=== PATIENT | female | born 1990 | race Caucasian/White ===

== ENCOUNTER 2019-03-10 12:10 | Outpatient (CLI) | payer OTHER, SELFPAY ==
--- NOTE | 2019-03-10 12:21 | ECG_ITS ---
Measurements Intervals [place] Rate: 81 P: 52 AL: 172 QRS: 38 QRSD: 79 T: 33 QT: 340 QTc: 396 Interpretive Statements SINUS RHYTHM WITH SINUS ARRHYTHMIA MINIMAL Q WAVES- INFERIOR LEADS BORDERLINE ECG Electronically Signed On 03-10-2019 16:18:17 PROFESSOR OF ART by Jeffery Loaiza D.O.
== END 2019-03-10 12:11 | disposition home or self-care (01) ==
LOC: ANHCARD 12:12
PROVIDERS: PCP Family Medicine; Visit Provider Student in an Organized Health Care Education/Training Program
DX: I49.9 Cardiac arrhythmia, unspecified (principal)
CPT/HCPCS: 93005

== ENCOUNTER 2019-03-15 06:40 | Outpatient (CLI) | payer OTHER, SELFPAY ==
--- NOTE | 2019-03-16 16:40 | WPDHOLTEREM ---
Holter/Event Monitor Holter/Event Monitor Date of procedure: 03/15/19 Procedure Type: 24 hour holter monitor Indications: Cardiac arrhythmia Conclusion: 1. 24 hour holter monitor on 03/15/19. 2. Underlying rhythm is sinus rhythm with sinus arrhythmia. HR range 45-160 bpm; average HR 88 bpm. 3. No premature supraventricular complexes. No supraventricular tachycardia. 4. There is one premature ventricular complex. No ventricular tachycardia. 5. No sinoatrial or atrioventricular blocks. No significant pauses greater than 2 seconds. 6. No symptoms available for correlation.
== END 2019-03-15 06:41 | disposition home or self-care (01) ==
PROVIDERS: PCP Family Medicine; Visit Provider Student in an Organized Health Care Education/Training Program
DX: I49.9 Cardiac arrhythmia, unspecified (principal)
CPT/HCPCS: 93225; 93226

== ENCOUNTER 2019-03-29 16:13 | Outpatient (CLI) | payer OTHER, SELFPAY ==
[2019-03-29 17:29] LABS: Basophils Absolute Auto 0.1 K/mm3 (0.0-0.1); Basophils Percent Auto 0.8 % (0.2-1.2); Eosinophils Absolute Auto 0.3 K/mm3 (0-0.3); Eosinophils Percent Auto 2.9 % (0-4.4); Hematocrit 36.2 % (37.0-47.0); Hemoglobin 12.4 g/dL (12.0-15.0); Immature Granulocyte Absolute 0.25 K/mm3 (0.00-0.031); Immature Granulocyte Percent A 2.1 % (0-0.5); Lymphocytes Percent Auto 17.6 % (18.3-44.2); Mean Corpuscular HGB Conc 34.3 g/dl (32-36); Mean Corpuscular Hemoglobin 30.5 pg (26-34); Mean Corpuscular Volume 89.2 fl (80-100); Mean Platelet Volume 9.5 fl (7.4-10.4); Neutrophils Absolute Auto 8.2 K/mm3 (1.3-6.7); Neutrophils Percent Auto 68.6 % (45.5-73.1); Platelet Count Result 171 k/mm3 (150-375); Red Blood Count 4.06 M/mm3 (4.2-5.4); Red Cell Distribution Width 13.1 % (11.5-14.5); White Blood Count 11.9 K/mm3 (4.5-10.0)
[2019-03-29 18:16] LABS: Glucose 1 Hour PP 50gm Dose 121 mg/dL
== END 2019-03-29 16:14 | disposition home or self-care (01) ==
LOC: ANHLAB 16:14
PROVIDERS: PCP Family Medicine; Visit Provider Student in an Organized Health Care Education/Training Program
DX: Z34.90 Encounter for supervision of normal pregnancy, unspecified, unspecified trimester (principal); Z36.89 Encounter for other specified antenatal screening; Z3A.00 Weeks of gestation of pregnancy not specified
CPT/HCPCS: 36415; 82947; 85025

== ENCOUNTER 2019-05-25 09:03 | Outpatient (CLI) | payer OTHER, SELFPAY ==
[2019-05-25 09:23] LABS: Basophils Absolute Auto 0.1 K/mm3 (0.0-0.1); Basophils Percent Auto 0.8 % (0.2-1.2); Eosinophils Absolute Auto 0.2 K/mm3 (0-0.3); Eosinophils Percent Auto 2.2 % (0-4.4); Hematocrit 40.6 % (37.0-47.0); Immature Granulocyte Absolute 0.12 K/mm3 (0.00-0.031); Immature Granulocyte Percent A 1.1 % (0-0.5); Lymphocytes Absolute Auto 1.86 K/mm3 (0.9-3.2); Lymphocytes Percent Auto 17.3 % (18.3-44.2); Mean Corpuscular HGB Conc 34.5 g/dl (32-36); Mean Corpuscular Hemoglobin 30.3 pg (26-34); Mean Corpuscular Volume 87.9 fl (80-100); Monocytes Absolute Auto 0.9 K/mm3 (0.1-0.6); Monocytes Percent Auto 8.6 % (2.6-8.5); Neutrophils Absolute Auto 7.5 K/mm3 (1.3-6.7); Platelet Count Result 185 k/mm3 (150-375); Red Blood Count 4.62 M/mm3 (4.2-5.4); Red Cell Distribution Width 13.5 % (11.5-14.5); White Blood Count 10.8 K/mm3 (4.5-10.0)
[2019-05-25 10:14] LABS: HIV 1/2 Ab P24 Ag Result Negative (Negative)
[2019-05-26 08:37] LABS: Rapid Plasma Reagin Non-Reactive (NonReactive)
== END 2019-05-25 09:04 | disposition home or self-care (01) ==
LOC: ANHLAB 09:06
PROVIDERS: PCP Family Medicine; Visit Provider Student in an Organized Health Care Education/Training Program
DX: Z34.90 Encounter for supervision of normal pregnancy, unspecified, unspecified trimester (principal); Z3A.00 Weeks of gestation of pregnancy not specified
CPT/HCPCS: 36415; 85025; 86592; 86703; G0432

== ENCOUNTER 2019-05-31 08:55 | Outpatient (CLI) | payer OTHER, SELFPAY ==
[2019-05-31 09:15] VITALS: PULSE 85
[2019-05-31 09:30] VITALS: BP 120/78; PULSE 102
[2019-05-31 09:31] LABS: Basophils Absolute Auto 0.1 K/mm3 (0.0-0.1); Basophils Percent Auto 0.6 % (0.2-1.2); Eosinophils Absolute Auto 0.3 K/mm3 (0-0.3); Eosinophils Percent Auto 2.3 % (0-4.4); Hematocrit 40.1 % (37.0-47.0); Hemoglobin 13.8 g/dL (12.0-15.0); Immature Granulocyte Percent A 0.9 % (0-0.5); Lymphocytes Absolute Auto 1.94 K/mm3 (0.9-3.2); Mean Corpuscular HGB Conc 34.4 g/dl (32-36); Mean Corpuscular Hemoglobin 30.2 pg (26-34); Mean Corpuscular Volume 87.7 fl (80-100); Mean Platelet Volume 10.4 fl (7.4-10.4); Monocytes Absolute Auto 0.8 K/mm3 (0.1-0.6); Monocytes Percent Auto 6.9 % (2.6-8.5); Neutrophils Absolute Auto 7.7 K/mm3 (1.3-6.7); Neutrophils Percent Auto 71.3 % (45.5-73.1); Platelet Count Result 191 k/mm3 (150-375); Red Blood Count 4.57 M/mm3 (4.2-5.4); Red Cell Distribution Width 13.4 % (11.5-14.5); White Blood Count 10.8 K/mm3 (4.5-10.0)
[2019-05-31 09:45] VITALS: BP 112/75; PULSE 96
[2019-05-31 09:45] LABS: Albumin Level 3.7 g/dL (3.5-5.1)
[2019-05-31 09:46] LABS: Alanine Aminotransferase 16 U/L (4-35); Alkaline Phosphatase 180 U/L (38-126); Aspartate Amino Transferase 26 U/L (14-36); Bilirubin,Total 0.5 mg/dL (0.2-1.3); Blood Urea Nitrogen 8 mg/dL (7-17); Calcium 8.8 mg/dL (8.4-10.2); Carbon Dioxide 20 mmol/L (22-30); Chloride 106 mmol/L (98-107); Estimated Glomerular Filt Rate > 60; Glucose 119 mg/dL (65-105); Potassium 3.7 mmol/L (3.4-5.0); Sodium 135 mmol/L (137-145); Uric Acid 5.4 mg/dL (2.5-7.5)
[2019-05-31 09:52] VITALS: PULSE 97
[2019-05-31 10:00] VITALS: BP 119/76; PULSE 94
[2019-05-31 10:01] LABS: Creatinine Urine 12.5 mg/dL; Total Protein Urine Random 13 mg/dL
[2019-05-31 10:15] VITALS: BP 117/74; PULSE 81
--- NOTE | 2019-05-31 10:25 | PC.NURSE ---
Called Dr. Corcoran with pt status. Informed of BPs and lab results. Will come in to discuss plan of care with pt.
== END 2019-05-31 10:29 | disposition home or self-care (01) ==
LOC: ANHOBOP 09:00 → ANHOBPP 09:04
PROVIDERS: PCP Family Medicine; Visit Provider Student in an Organized Health Care Education/Training Program
DX: O13.9 Gestational [pregnancy-induced] hypertension without significant proteinuria, unspecified trimester (principal)
CPT/HCPCS: 36415; 59025; 80053; 82570; 84156; 84550; 85025; 99199

== ENCOUNTER 2019-06-22 08:48 | Inpatient (IN) | payer OTHER, SELFPAY ==
[2019-06-22] VITALS (23 sets, daily range): BP systolic 117–142; BP diastolic 67–91; PULSE 60–103; TEMP 36.6–37.4; BMI 30.3
--- NOTE | 2019-06-22 09:19 | PM.IMHP ---
H&P: HPI History of Present Illness Chief complaint: iol Narrative: Deepa Reis is a 29 year old LMP 09/10/18 currently 39w4d gestation with an CHRISTY 06/25/19. Patient is dated by an US on 11/21/18 at 9w gestation. was relatively uncomplicated until approx. 2 weeks ago when she experienced first elevated BP in office. She was sent to L&D for further evaluation, however, did not have any additional elevated BP measurements and labs were within normal limits. Patient performed home monitoring of BP, which was discontinued last week after two full weeks of completely normotensive measurements. Patient had second elevated measurement in office today, confirming diagnosis of gestational hypertension. Decision made to proceed with induction of labor secondary to gestational hypertension. Patient is otherwise asymptomatic. Denies any headache, chest pain, SOB, N/V, visual disturbances, or RUQ tenderness. Denies any vaginal bleeding or leakage of fluid. Reports occ ctx and good movement. Of note, in early , patient was evaluated by cardiology for sinus arrhythmia. Symptoms resolved and patient has not had any recent complaints. Review of Systems Constitutional: Constitutional: Reports as per HPI and Reports no additional constitutional complaints Eyes: Eyes: Reports as per HPI and Reports no additional eye complaints ENT: Reports system reviewed and no additional complaints, except as documented and Reports as per HPI Cardiovascular: Cardiovascular: Reports as per HPI, Reports no additional cardiovascular complaints and Denies chest pain Respiratory: Respiratory: Reports as per HPI, Reports no additional respiratory complaints and Denies dyspnea Gastrointestinal: Gastrointestinal: Reports as per HPI, Reports no additional gastrointestinal complaints, Denies abdominal pain, Denies nausea and Denies vomiting Genitourinary: Genitourinary: Reports no additional female genitourinary complaints and Reports as per HPI Musculoskeletal: Musculoskeletal: Reports no additional musculoskeletal complaints and Reports as per HPI Integumentary/Breasts: Skin/Breast: Reports system reviewed and no additional complaints, except as docu and Reports as per HPI Neurologic: Reports system reviewed and no additional complaints, except as documented and Reports as per HPI Psychiatric: Psychiatric: Reports no additional psychiatric complaints and Reports as per HPI PMFSH Past Medical History Medical History Acid reflux Encounter for supervision of normal first in second trimester History of broken nose Surgical History Surgical History [place] teeth removed Family History Family History Father Family history of hypercholesterolemia Hypertension Cerebrovascular accident, Onset Age: 40 Hypothyroidism Mother Depression Family history of hypercholesterolemia Hypertension Sibling Asthma Grandparent Family history of cardiovascular disease Social History Social History Smoking status: Never smoker Second hand tobacco smoke exposure: No Alcohol intake: current Substance use: never Spiritual care concerns: No Meds Home Medications and Allergies Home Medications Medication Instructions Recorded Confirmed Type loratadine 10 mg tablet 10 mg PO DAILY 04/06/19 04/06/19 History fluticasone propionate 50 1 spray NASAL DAILY 05/01/19 History mcg/actuation nasal spray,suspension PNV b#95-ferrous fumarate-FA 1 tablet PO DAILY 05/26/19 05/26/19 History [] Allergies Allergy/AdvReac Type Severity Reaction Status Date / Time Penicillins Allergy Intermediate Hives Verified 06/22/19 08:19 Exam Const: General: comfortable and no acute distress HENMT: Head: normoceph
[2019-06-22 10:12] LABS: Basophils Absolute Auto 0.1 K/mm3 (0.0-0.1); Basophils Percent Auto 0.8 % (0.2-1.2); Eosinophils Absolute Auto 0.2 K/mm3 (0-0.3); Eosinophils Percent Auto 1.7 % (0-4.4); Hematocrit 40.6 % (37.0-47.0); Hemoglobin 14.2 g/dL (12.0-15.0); Immature Granulocyte Absolute 0.11 K/mm3 (0.00-0.031); Lymphocytes Absolute Auto 1.99 K/mm3 (0.9-3.2); Lymphocytes Percent Auto 18.5 % (18.3-44.2); Mean Corpuscular Hemoglobin 30.6 pg (26-34); Mean Corpuscular Volume 87.5 fl (80-100); Mean Platelet Volume 10.8 fl (7.4-10.4); Monocytes Absolute Auto 0.9 K/mm3 (0.1-0.6); Monocytes Percent Auto 8.1 % (2.6-8.5); Neutrophils Absolute Auto 7.5 K/mm3 (1.3-6.7); Neutrophils Percent Auto 69.9 % (45.5-73.1); Platelet Count Result 206 k/mm3 (150-375); Red Blood Count 4.64 M/mm3 (4.2-5.4); Red Cell Distribution Width 13.2 % (11.5-14.5); White Blood Count 10.8 K/mm3 (4.5-10.0)
[2019-06-22 10:25] LABS: Alanine Aminotransferase 15 U/L (4-35); Alkaline Phosphatase 212 U/L (38-126); Aspartate Amino Transferase 27 U/L (14-36); Bilirubin,Total 0.4 mg/dL (0.2-1.3); Blood Urea Nitrogen 14 mg/dL (7-17); Calcium 9.5 mg/dL (8.4-10.2); Carbon Dioxide 24 mmol/L (22-30); Chloride 105 mmol/L (98-107); Estimated Glomerular Filt Rate > 60; Glucose 80 mg/dL (65-105); Potassium 4.2 mmol/L (3.4-5.0); Sodium 134 mmol/L (137-145); Uric Acid 6.3 mg/dL (2.5-7.5)
--- NOTE | 2019-06-22 10:28 | LDADM ---
This patient, Deepa Reis, was admitted to Labor/Delivery/Recovery 104 on 06/22/19 at 08:48. Plans for labor, pain management and were discussed with patient. Patient/family oriented to hospital policies and general routines including ID bracelet, bed and alarms, visiting hours, pain management, procedures, bathroom and other care routines, personal items, smoking policy, room service/diet and guest tray routines, infant security routines, call light, and visiting hours. Patient/Family are encouraged to report perceived risks to care and to ask questions if they do not understand what they are told or what they should do. See OBIX for further documentation.
--- NOTE | 2019-06-22 13:45 | PM.OBPNLAB ---
Pain Control Date/time seen: 06/22/19 13:45 Patient doing well. Reports few contractions. AROM performed, clear fluid noted. EFM reassuring. [place] shows occ ctx. Patient desires to see if she progresses into labor on own. Patient made aware of increased risk of infection with prolonged ROM, however, will allow expectant management for now and continue to monitor. All questions and concerns addressed.
[2019-06-22] MEDS: ONDANSETRON INJ 4 MG/2 ML VIAL IV PUSH (18:56)
[2019-06-22] MEDS: OXYTOCIN 30 UNITS/NS 500 ML 30 UNITS/500 ML BAG 999 UNITS IV CONT (20:58)
--- NOTE | 2019-06-22 21:36 | P.PCNOB_ITS ---
OB - Delivery Note Procedure Delivery date: 06/22/19 Procedure: The patient is now a 29 year old who presented to Labor and delivery on 06/22/2019 at 39 weeks and 4 days gestation for induction of labor secondary to gestational hypertension. Patient was seen in office this morning for routine visit where she experienced her 2nd elevated blood pressure during this . Diagnosis of gestational hypertension was made and recommendation was made for induction of labor. Initial cervical exam was 2 to 3 cm dilated. Induction of labor was started with artificial rupture of membranes at 1:18 p.m. Patient was allowed expected management and progressed into labor without further interventions. She continued to make progressive cervical change throughout the afternoon and evening on her own. Patient declined any pain interventions. Patient was noted to be fully dilated at 8:05 p.m. She was encouraged to push and found to be pushing well. At 8:58 p.m., the infant's head was delivered atraumatically and without difficulty in STORM presentation. Occiput restituted to maternal right side. A nuchal cord x1 was noted and easily reduced. With subsequent push, the 's neck, shoulders, and rest of body delivered without difficulty. The infant was crying spontaneously. Infant's nose and mouth were suctioned with bulb suction and the was placed on maternal abdomen where care was assumed by awaiting nursing staff. Delayed cord clamping was performed for 75 seconds. The cord was clamped and cut. A segment of cord was collected for cord gases. Cord blood was obtained. The placenta was delivered spontaneously and intact. Uterine fundus was noted to be firm with bimanual massage. On inspection, bilateral periurethral lacerations were noted as well as a right labial laceration. Approximately 20 cc Lidocaine 1% was administered total for local pain management. These lacerations were made hemostatic with 2-0 and 3-0 Vicryl in the usual fashion. Excellent hemostasis was noted. A red rubber catheter was used to drain the bladder of approximately 50 cc of concentrated urine. The patient was cleansed and dried. The infant was a live-born male infant, Apgars 9 and 9, weighing 8 lb 3 oz. Both mother and baby doing well at end of delivery. events: Induced HTN Intrapartal events: None Induction method: AROM Delivery monitor: external FHT and external uterine Route of delivery: Laceration description: Periurethral - 1st Degree (and right labial) Delivery repair: vicryl Specimen: Yes (placenta and cord) Estimated blood loss (mL): 500 Anesthesia type: None Disposition: floor Complications: None [place] Baby Date of : 06/22/19 Time of : 20:58 Weeks of gestation at delivery: 39 Infant gender: Male Weight (pounds): 8 Weight (ounces): 3 presentation: vertex position: Right Occiput Anterior Placenta delivery description: Spontaneous cord vessel description: 3 Vessels, Nuchal Cord (x1) and Clamped/Cut score one minute: 9 score five minutes: 9
[2019-06-22] MEDS: OXYTOCIN 30 UNITS/NS 500 ML 30 UNITS/500 ML BAG 125 UNITS IV CONT (21:37)
[2019-06-22] MEDS: IBUPROFEN 600 MG TABLET PO (22:15)
[2019-06-22] MEDS: BENZOCAINE 20% AER SPR (*SP) 56 GM CAN 1 SPRAY TOPICAL (22:16)
[2019-06-22] MEDS: WITCH HAZEL 40 PADS 1 PAD TOPICAL (22:16)
[2019-06-22] MEDS: LANOLIN (LANSINOH) 7.5 GM CREAM 1 APPLIC TOPICAL (22:16)
[2019-06-23 00:23] VITALS: BP 113/69; PULSE 86; RESP 14; TEMP 36.8; O2SAT 97
[2019-06-23 05:24] LABS: Hematocrit 36.4 % (37.0-47.0); Hemoglobin 13.1 g/dL (12.0-15.0)
[2019-06-23 07:21] LABS: Rapid Plasma Reagin Non-Reactive (NonReactive)
[2019-06-23 07:50] VITALS: BP 115/70; PULSE 66; RESP 18; TEMP 36.6; O2SAT 99
[2019-06-23] MEDS: MULTIVIT/MIN/PREN/FOL AC/IRON TABLET 1 TAB PO (08:00)
[2019-06-23] MEDS: DOCUSATE SODIUM 100 MG CAPSULE PO ×2 (08:00→16:52)
[2019-06-23] MEDS: IBUPROFEN 600 MG TABLET PO ×3 (08:00→23:32)
--- NOTE | 2019-06-23 10:02 | PM.OBPNVD ---
OB - PN: Subj Subjective Date/time seen: 06/23/19 10:02 Patient doing well. Reports feeling sore. Pain controlled with medication. Otherwise, denies any heavy bleeding. Ambulating well. Voiding without difficulty. OB - PN: Obj Data Labs CBC & Chem 7: 06/23/19 04:51 06/22/19 09:59 Labs: Laboratory Results - last 24 hr 06/22/19 06/22/19 06/22/19 09:59 09:59 09:59 WBC 10.8 H RBC 4.64 Hgb 14.2 Hct 40.6 MCV 87.5 MCH 30.6 MCHC 35.0 RDW 13.2 Plt Count 206 MPV 10.8 H Immature Gran % (Auto) 1.0 H Neut % (Auto) 69.9 Lymph % (Auto) 18.5 [place] % (Auto) 8.1 Eos % (Auto) 1.7 Baso % (Auto) 0.8 Lymph # (Auto) 1.99 [place] # (Auto) 0.9 H Eos # (Auto) 0.2 Baso # (Auto) 0.1 Abs Immat Gran (auto) 0.11 H Absolute Neuts (auto) 7.5 H Absolute Nucleated RBC 0.0 Nucleated RBC % 0.0 Sodium Potassium Chloride Carbon Dioxide BUN Creatinine Estim Creat Clear Calc Estimated GFR Glucose Uric Acid Calcium Total Bilirubin AST ALT Alkaline Phosphatase Total Protein Albumin RPR Non-reactive Blood Type B Positive Antibody Screen Negative 06/22/19 06/23/19 09:59 04:51 WBC RBC Hgb 13.1 Hct 36.4 L MCV MCH MCHC RDW Plt Count MPV Immature Gran % (Auto) Neut % (Auto) Lymph % (Auto) [place] % (Auto) Eos % (Auto) Baso % (Auto) Lymph # (Auto) [place] # (Auto) Eos # (Auto) Baso # (Auto) Abs Immat Gran (auto) Absolute Neuts (auto) Absolute Nucleated RBC Nucleated RBC % Sodium 134 L Potassium 4.2 Chloride 105 Carbon Dioxide 24 BUN 14 D Creatinine 0.70 Estim Creat Clear Calc Not Reportable Estimated GFR > 60 Glucose 80 Uric Acid 6.3 Calcium 9.5 Total Bilirubin 0.4 AST 27 ALT 15 Alkaline Phosphatase 212 H Total Protein 7.0 Albumin 4.0 RPR Blood Type Antibody Screen OB - PN A/P Assessment and Plan (1) Normal spontaneous vaginal delivery: Code(s): O80 - Encounter for full-term uncomplicated delivery Status: Acute Assessment and Plan: doing well continue routine care anticipate dc home tomorrow Time Spent With Patient Time: Total time spent is greater than 50% in coordination of care (as documented) at patient's floor/unit and/or counseling patient: Exam Const: General: comfortable and no acute distress GI: GI Palp: Yes Soft to palpation, No Tenderness to palpation present (GI) and No Guarding due to palpation present (GI) Other: fundus below umbilicus Extrem: Right lower extremity: no edema Left lower extremity: no edema Other: no calf tenderness
[2019-06-23 19:50] VITALS: BP 115/67; PULSE 86; RESP 18; TEMP 36.4; O2SAT 98
--- NOTE | 2019-06-23 19:50 | PC.NURSE ---
Patient viewed the discharge video Mother & Baby Care, The First Two Weeks . Patient was given the opportunity and encouraged to ask questions. Patient verbalized understanding of information shared and has been given the mother/baby guide for home reference.
--- NOTE | 2019-06-24 08:00 | PC.NURSE ---
PT introductions made and plan of care discussed per post , pain management, breast feeding, daily care activities and pending discharge to home.PT verbalized understanding of such care.
--- NOTE | 2019-06-24 09:09 | PM.OBPNVD ---
OB - PN: Subj Subjective Date/time seen: 06/24/19 09:09 Patient doing well. Minimal pain. Well controlled with medication. Minimal lochia. Ambulating without difficulty. Voiding well. Denies any headache, chest pain, SOB, N/V, RUQ tenderness, or visual disturbances. OB - PN: Obj Data Labs CBC & Chem 7: 06/23/19 04:51 06/22/19 09:59 OB - PN A/P Assessment and Plan (1) Normal spontaneous vaginal delivery: Code(s): O80 - Encounter for full-term uncomplicated delivery Status: Acute Assessment and Plan: doing well discharge home in stable condition emergency precautions reviewed with patient instructed to f/u in office in 1 week for BP check Time Spent With Patient Time: Total time spent is greater than 50% in coordination of care (as documented) at patient's floor/unit and/or counseling patient: Exam Const: General: comfortable and no acute distress GI: GI Palp: Yes Soft to palpation and No Tenderness to palpation present (GI) Other: fundus below umbilicus Extrem: Right lower extremity: no edema Left lower extremity: no edema Other: no calf tenderness
--- NOTE | 2019-06-24 09:11 | PM.OBDSVD ---
DS: Diagnosis Admitting Diagnosis Admitting Diagnosis: Encounter for supervision of normal , unspecified, unspecified trimester OB - DS: Summary OB Procedures : None OB Procedures Intrapartum: Spontaneous Vag Delivery OB Procedures: : None Time Spent with Patient Time attestation: Total time spent providing and/or coordinating discharge services: DS: Data Data Completed and Pending Pending studies at discharge: Pending at discharge 06/22/19 21:01 Surgical [PTH] Routine Discharge Plan Discharge Attending physician on discharge: Gayle Corcoran Discharging Clinician: Gayle Corcoran Anticipated Discharge Date/Time: 06/24/19 09:11 Patient Disposition: Home, Self-Care Activity: as tolerated Diet: regular Discharge Instructions: Call office ([phone]) to schedule the following appointments: 1. Blood pressure check in 1 week 2. visit in 4-6 weeks You may take Ibuprofen 600mg every 6 hours as needed for pain. Pain medication may make you constipated. It may be helpful to take an jrjk-jio-iryvotn stool softener, such as Colace and/or Senokot, along with the pain medication to help lessen constipation. Call office or go to ED for pain not controlled with medication, headache, chest pain, shortness of breath, fever, chills, persistent nausea or vomiting, severe abdominal pain, visual changes, heavy vaginal bleeding >2 pads/hour, foul vaginal discharge or odor, or problems with your breasts. Education: Mom and Baby Guide Given to: Mother Follow-Up: Call your delivering provider's office for an appointment to be seen in: 4 Weeks Mom and baby should come to the [facility] for the follow-up appointment. Appointment Date/Time: June 26, 2019 at 10:00 am What to expect at your follow-up visit: Blood Pressure Check Call [phone] if you are unable to keep your appointment time. BREAST CARE: 1. Wear a snug supportive bra. 2. For engorgement discomfort: Breast Feeding: A. Apply warm moist washcloths B. Express milk as needed to relieve engorgement C. Wear loose clothing Bottle Feeding: A. May apply ice packs 3. For sore nipples: A. Identify correct latch-on B. Apply warm moist washcloths before and after nursing C. Air dry nipples after nursing D. May apply Lansinoh cream to nipples PERINEAL CARE: 1. Until bleeding stops, use your josé antonio bottle after urinating 2. Change your pad frequently throughout the day 3. You may take sitz baths several times a day (fill your bathtub with warm water and soak for 20 minutes.) Do NOT bathe in the water 4. No tub baths until seen by your physician - You may shower ACTIVITY: 1. Rest as much as possible. 2. Do not exercise or lift anything heavier than your baby (such as laundry or other children.) 3. Avoid stairs or driving as much as possible. 4. Do not put anything into the vagina. No douching, tampons, or sexual activity until seen by physician. NOTIFY PHYSICIAN IF YOU HAVE ANY QUESTIONS OR IF ANY OF THE FOLLOWING SYMPTOMS OCCUR: 1. If your perineum becomes red, swollen, or more painful than what you have experienced in the hospital. 2. If your vaginal bleeding becomes foul smelling. 3. If your vaginal bleeding becomes more heavy than a period or if your bleeding changes from pink to bright red. However, you may pass an occasional walnut-sized clot once or twice for the first week . 4. If you experience a sharp, shooting pain in you calves. 5. If you discover a hard, reddened area on your breast or if you experience flu-like symptoms. 6. Call for temp 100.4 or greater DIET: 1. Eat regular, well-balanced meals. 2. Drink plenty of fluids daily. If , drink to thirst. Patient Instructions: Antibiotic Form Stand Alone Forms: General Discharge Information [place]
[2019-06-24 10:45] VITALS: BP 120/74; PULSE 87; RESP 16; RESP 18; TEMP 37.5
[2019-06-24] MEDS: IBUPROFEN 600 MG TABLET PO (10:45)
[2019-06-24] MEDS: DOCUSATE SODIUM 100 MG CAPSULE PO (10:46)
[2019-06-24] MEDS: MULTIVIT/MIN/PREN/FOL AC/IRON TABLET 1 TAB PO (10:46)
--- NOTE | 2019-06-24 12:00 | PC.NURSE ---
PT received discharge instructions per protocol and verbalized understanding of such instructions.
--- NOTE | 2019-06-24 13:07 | PC.NURSE ---
PT discharged to home ambulatory accompanied by spouse and and taken to waiting car. Follow up appts confirmed
[2019-06-26 09:37] VITALS: BP 121/71; PULSE 91; RESP 16; TEMP 36.7; O2SAT 100
== END 2019-06-24 13:07 | disposition home or self-care (01) | DRG 807 ==
LOC: ANHLDR 08:52 → ANHOB2 06-23 00:18
PROVIDERS: Admitting Provider Student in an Organized Health Care Education/Training Program; PCP Family Medicine; Visit Provider Student in an Organized Health Care Education/Training Program
DX: O13.4 Gestational [pregnancy-induced] hypertension without significant proteinuria, complicating childbirth (principal); Z37.0 Single live birth; Z3A.39 39 weeks gestation of pregnancy; O71.82 Other specified trauma to perineum and vulva; O69.81X0 Labor and delivery complicated by cord around neck, without compression, not applicable or unspecified
CPT/HCPCS: 36415; 80053; 84550; 85014; 85018; 85025; 86592; 86850; 86900; 86901; 88307; A9270; J2405; J2590

== ENCOUNTER 2019-07-07 16:47 | Outpatient (RCR) | payer OTHER, SELFPAY ==
--- NOTE | 2019-06-29 12:00 | PC.NURSE ---
IN 1100 OUT 1155 HISTORY: Pt. delivered at [facility] term. had no complications after delivery. Mother had no complications after delivery. is now 6 days old. appears to be well cared for. Infant will be seen by ICP tomorrow at 1 week. Mother reports: will eagerly latch each feeding. Mother struggles with latching and maintaining a deep latch. Both nipples are sore, reddened and left has a small blister. Mother wishes: To latch without difficulties and discomfort. Currently at 6 wets per day and 2-3 yellow seedy stools per day. weight: Discharge weight: Last Weight: 8#0 at follow up Pre feeding weight: Post feeding weight: OBSERVATION: Mother is engorged bilaterally. Mother states she attempts to pump to soften before before latching using the [place]. Mother is concerned she will take out to much and infant will not have enough for feeding. Reviewed mother has plenty of milk and can switch infant to other breast each feeding if needed. Mother is able to latch infant independently using cross cradle , holding breast and asymmetrical latch. is eager to wake and latch to feed, opening widely. will begin with a deep latch and quickly slip down due to fullness of breast. Discussed the importance of softening before feeding to assist infant latch deeply and maintain deep latch. Demonstrated self expression and level to soften before attempting infant to breast. Once breast is softened is able to latch deeply and nurse vigorously. Mother reports less tenderness with feeding. Demonstrated how to adjust latch more deeply while feeding. Mother was able to adjust latch independently to correct once infant would pull back or slip to shallow latch. Suggested FOB assist with pulling bottom lip down if needed. Mother was able to switch breast and latch independently without difficulties or discomfort. Discussion on oversupply and maintenance of supply. Plan is to adequately soften breast is to feed on and then comfort pump other breast and ice pack between feedings. Mother will switch next feeding and repeat. Reviewed decrease in supply should be noticed within 3-5 days and she should not have to soften before latching or comfort pump other breast after. PLAN: Mother will follow above feeding plan using techniques for deeper latch and decreasing supply. Mother will call with further questions or concerns.
== END 2019-08-04 08:59 | disposition home or self-care (01) ==
LOC: ANHOBOP 16:47
PROVIDERS: PCP Family Medicine; Visit Provider Pediatrics
DX: Z39.1 Encounter for care and examination of lactating mother (principal)
CPT/HCPCS: 99212; G0463

== ENCOUNTER 2019-11-09 12:30 | Outpatient (RCR) | payer OTHER, SELFPAY ==
--- NOTE | 2019-10-26 15:18 | PTOPEVAL ---
INITIAL PHYSICAL THERAPY EVALUATION and PLAN OF CARE Thank you for referring Deepa Reis to [facility].? Deepa is scheduled to be seen for physical therapy? 1x/week for 3 weeks. Please review, sign, date and return this plan of care YUVAL. I agree with and certify that the following plan of care is medically necessary. Referring Physician Date Admitting Provider: Attending Provider: Gayle Corcoran MD Referring Provider: *PT Outpatient Evaluation Start: 10/26/19 13:20 Freq: Status: Active Protocol: Document 10/26/19 13:15 CHAYO (Rec: 10/26/19 14:45 CHAYO [id number]) Therapy Assessment Status Assessment Status Assessment Status Evaluation Outpatient Past Medical History Past Medical History Source of Past Medical History Recalled from Previous Visit, Confirmed with Patient/Family Neurological History Hx Neurological Disorders No Significant History Cardiovascular History Hx Cardiac Disorders No Significant History Respiratory History Hx Respiratory Disorders No Significant History Gastrointestinal History Hx Gastrointestinal Disorders No Significant History Genitourinary History Hx Genitourinary Disorders No Significant History Musculoskeletal History Hx Musculoskeletal Disorders No Significant History Hematological History Hx Hematological Disorders No Significant History Endocrine History Hx Endocrine Disorders No Significant History HEENT History Hx Other HEENT Disorders Yes: BROKEN NOSE 2015 Integumentary History Hx Eczema Yes Reproductive History Hx Reproductive Disorders No Significant History Psychosocial History Hx Psychiatric Disorders No Significant History Pain History History of Any Previous or Ongoing No Significant History Instance of Pain Anesthesia History Hx Anesthesia Reactions No Significant History Other History Hx Other Surgeries Yes: WISDOM TEETH Evaluation Information Problem Diagnosis pelvic and perineal pain Onset 2.5-3 months ago Cause child June 2019 Subjective Information since childbirth - she has had Query Text:As Reported By Patient/ some incontinence with Family running and pain with intercourse. With intercourse - increased discomfort with insertion and pentration. No difficulty with bowel movement . Will leak with running but not with cough or sneeze. Hasn't tried jumping jacks - but any jumps with work out video will result in some
--- NOTE | 2019-11-09 17:42 | PTOPEVAL ---
PHYSICAL THERAPY DISCHARGE SUMMARY Thank you for referring Deepa Reis to [facility].? Melida was seen for 3 visits. She has met all of her goals and is to continue with her HEP. She is to call if she has any questions. I agree with Melida's discharge from PT. Referring Physician Date Admitting Provider: Attending Provider: Gayle Corcoran MD Referring Provider: *PT Outpatient Evaluation Start: 10/26/19 13:20 Freq: Status: Active Protocol: Document 11/09/19 12:35 CHAYO (Rec: 11/09/19 13:38 CHAYO [email or web address]) Therapy Assessment Status Assessment Status Assessment Status Discharge Evaluation Information Problem Subjective Information Melida states that she is Query Text:As Reported By Patient/ doing well. continues Family to work with her on soft tissue mobilization of levator ani/pelvic floor. Last time with intercourse - no pain. Able to go running without leakage now. Also no leakage with cough, sneeze. Pain Assessment Timing of Pain Assessment Timing of Pain Assessment Assessment Pain Scale Pain Scale Used Numeric (1 - 10) Self Report Pain Assessment Lower Perineum Reported Pain Level 0 Lowest Pain Intensity 0 Greatest Pain Intensity 2 Pain Score Pain Score 0: Self Report Pelvic Health Evaluation Pelvic Floor Assessment Permission Received for External/ Yes Internal Perineal Exam External Perineal Body Mobility Present Voluntary External Perineal Body Mobility Present Involuntary External Perineal Body Palpation symmetrical labia Internal Perineal Body Palpation no tenderness at introitus, mild tissue tension/tenderness initially L side of levator ani - after soft tissue mobilization - no tightness or tenderness. R side - no soft tissue tension present Sustained Levator Ani Strength 4/5 - able to hold x 10 cts Quick Levator Ani Contraction in 15 10 reps Seconds PT Clinical Summary Clinical Summary Protocol: PTEVCODE PT Clinical Summary [place] Pain Functional Questionnaire 0 pts Incontinence Impact Questionnaire 0% Urogenital Distress Inventory 0% Melida has done well in PT in
== END 2019-11-13 11:56 | disposition home or self-care (01) ==
LOC: ANHPT 12:30
PROVIDERS: PCP Family Medicine; Visit Provider Student in an Organized Health Care Education/Training Program
DX: R10.2 Pelvic and perineal pain (principal)
CPT/HCPCS: 97110; 97140; 97161

== ENCOUNTER 2019-12-18 12:57 | Outpatient (CLI) | payer OTHER, SELFPAY ==
[2019-12-18 13:23] LABS: Hematocrit 41.7 % (37.0-47.0); Hemoglobin 14.2 g/dL (12.0-15.0); Mean Corpuscular HGB Conc 34.1 g/dl (32-36); Mean Corpuscular Hemoglobin 28.9 pg (26-34); Mean Corpuscular Volume 84.8 fl (80-100); Mean Platelet Volume 9.6 fl (7.4-10.4); Platelet Count Result 295 k/mm3 (150-375); Red Blood Count 4.92 M/mm3 (4.2-5.4); Red Cell Distribution Width 13.2 % (11.5-14.5); White Blood Count 6.8 K/mm3 (4.5-10.0)
[2019-12-18 13:34] LABS: Alanine Aminotransferase 42 U/L (4-35); Albumin Level 4.7 g/dL (3.5-5.1); Alkaline Phosphatase 85 U/L (38-126); Anion Gap 9 mmol/L (8-16); Aspartate Amino Transferase 56 U/L (14-36); Blood Urea Nitrogen 15 mg/dL (7-17); Calcium 9.3 mg/dL (8.4-10.2); Carbon Dioxide 28 mmol/L (22-30); Chloride 102 mmol/L (98-107); Estimated Glomerular Filt Rate > 60; Glucose 111 mg/dL (65-105); Potassium 3.7 mmol/L (3.4-5.0); Sodium 139 mmol/L (137-145)
[2019-12-18 14:08] LABS: Erythrocyte Sedimentation Rate 84 mm/hr (0-20)
[2019-12-18 14:09] LABS: Free T4 Free Thyroxine 0.21 ng/mL (0.78-2.19)
== END 2019-12-18 12:58 | disposition home or self-care (01) ==
PROVIDERS: PCP Family Medicine; Visit Provider Physician Assistant
DX: R53.83 Other fatigue (principal); M79.10 Myalgia, unspecified site; E53.8 Deficiency of other specified B group vitamins
CPT/HCPCS: 36415; 80053; 82607; 84439; 84443; 85027; 85652

== ENCOUNTER 2019-12-27 16:41 | Outpatient (CLI) | payer OTHER, SELFPAY ==
--- NOTE | ~2019-12-27 | US_ITS ---
EXAMINATION: US thyroid DATE: 12/27/2019 17:01 INDICATION: Hypothyroidism TECHNIQUE: Multiple ultrasound images of the thyroid were obtained. COMPARISON: None. FINDINGS: The right thyroid lobe measures 4.7 x 1.5 x 1.5 cm. The left thyroid lobe measures 4.9 x 1.5 x 1.7 c m. The thyroid isthmus measures 6 mm thickness. No discrete nodules identified. There is diffuse deep decreased thyroid echogenicity with coarsened echotexture and mild diffuse increased vascular flow o n color Doppler which suggests thyroiditis. IMPRESSION: 1. Mildly enlarged and hyperemic thyroid with decreased echogenicity and coarsened echotexture which can be seen with thyroiditis. Reviewed, dictated and finalized at location . BER ROOM ATTENDANT IMPRESSION: 1. Mildly enlarged and hyperemic thyroid with decreased echogenicity and coarse danuta echotexture which can be seen with thyroiditis.
== END 2019-12-27 16:42 | disposition home or self-care (01) ==
PROVIDERS: PCP Family Medicine; Visit Provider Physician Assistant
DX: E03.9 Hypothyroidism, unspecified (principal)
CPT/HCPCS: 76536

== ENCOUNTER 2020-01-12 15:53 | Outpatient (CLI) | payer OTHER, SELFPAY ==
[2020-01-12 17:13] LABS: Free T4 Free Thyroxine 0.48 ng/mL (0.78-2.19)
[2020-01-12 17:29] LABS: Thyroid Stimulating Hormone Reflex > 100.000 uIU/mL (0.465-4.68)
[2020-01-12 17:31] LABS: Free T4 Free Thyroxine Reflex 0.48 ng/dL (0.78-2.19)
== END 2020-01-12 15:54 | disposition home or self-care (01) ==
LOC: ANHLAB 15:54
PROVIDERS: PCP Family Medicine; Visit Provider Family Medicine
DX: E06.0 Acute thyroiditis (principal); E03.9 Hypothyroidism, unspecified
CPT/HCPCS: 36415; 84439; 84443

== ENCOUNTER 2020-03-20 07:59 | Outpatient (CLI) | payer OTHER, SELFPAY ==
[2020-03-20 08:48] LABS: Alanine Aminotransferase 40 U/L (4-35); Albumin Level 4.8 g/dL (3.5-5.1); Alkaline Phosphatase 70 U/L (38-126); Anion Gap 9 mmol/L (8-16); Aspartate Amino Transferase 45 U/L (14-36); Bilirubin,Total 0.8 mg/dL (0.2-1.3); Blood Urea Nitrogen 15 mg/dL (7-17); Calcium 9.8 mg/dL (8.4-10.2); Carbon Dioxide 29 mmol/L (22-30); Chloride 104 mmol/L (98-107); Estimated Glomerular Filt Rate > 60; Glucose 93 mg/dL (65-105); Potassium 4.6 mmol/L (3.4-5.0); Sodium 142 mmol/L (137-145)
[2020-03-20 09:09] LABS: Free T4 Free Thyroxine 0.96 ng/mL (0.78-2.19); Total Triiodothyronine (T3) 1.31 NG/ML (0.97-1.69)
== END 2020-03-20 08:00 | disposition home or self-care (01) ==
PROVIDERS: PCP Family Medicine; Visit Provider Family Medicine
DX: R74.8 Abnormal levels of other serum enzymes (principal); R53.83 Other fatigue; E06.0 Acute thyroiditis
CPT/HCPCS: 36415; 80048; 80076; 84439; 84443; 84480

== ENCOUNTER 2020-04-16 14:27 | Outpatient (CLI) | payer OTHER, SELFPAY ==
[2020-04-16 16:31] LABS: Free T4 Free Thyroxine 1.07 ng/mL (0.78-2.19)
[2020-04-19 03:26] LABS: Thyroid Peroxidase Antibodies 778 IU/mL (<9)
== END 2020-04-16 14:28 | disposition home or self-care (01) ==
LOC: ANHWCLAB 14:30
PROVIDERS: PCP Family Medicine; Referring Provider Internal Medicine Endocrinology, Diabetes & Metabolism; Visit Provider Internal Medicine Endocrinology, Diabetes & Metabolism
DX: E03.9 Hypothyroidism, unspecified (principal)
CPT/HCPCS: 36415; 84439; 84443; 86376

== ENCOUNTER 2020-05-22 13:22 | Outpatient (CLI) | payer OTHER, SELFPAY ==
[2020-05-22 15:21] LABS: Free T4 Free Thyroxine 0.98 ng/mL (0.78-2.19)
== END 2020-05-22 13:23 | disposition home or self-care (01) ==
PROVIDERS: PCP Family Medicine; Visit Provider Family Medicine
DX: E03.9 Hypothyroidism, unspecified (principal)
CPT/HCPCS: 36415; 84439; 84443; 84480

== ENCOUNTER → 2020-06-18 15:53 | Outpatient (REF) | payer OTHER, SELFPAY | LOC: ANHLAB 15:53 | PROVIDERS: PCP Family Medicine; Visit Provider Nurse Practitioner | DX: D23.4 Other benign neoplasm of skin of scalp and neck (principal); D22.5 Melanocytic nevi of trunk | CPT/HCPCS: 88305 ==

== ENCOUNTER 2020-06-24 11:00 | Outpatient (RCR) | payer OTHER, SELFPAY ==
--- NOTE | 2020-05-28 08:51 | PTOPEVAL ---
PHYSICAL THERAPY EVALUATION Thank you for referring Deepa Reis to [facility] [place] Melida was evaluated for the dx of right hip pain/sprain. The patient is scheduled to be seen for therapy? 2 x/week for 4 weeks. Please review, sign, date and return this plan of care YUVAL. I agree with and certify that the following plan of care is medically necessary. Referring Physician Date Attending Provider: Octavia Terry PA-C *PT Outpatient Evaluation Start: 05/28/20 07:37 Freq: Status: Active Protocol: Document 05/28/20 07:37 MLV (Rec: 05/28/20 08:50 MLV [id number]) Therapy Assessment Status Assessment Status Evaluation Evaluation Information Problem Diagnosis right hip pain Onset 1 month ago Cause overuse from 02/09 marathon training Additional Evaluation Detail The patient is an avid athlete and does marathons/biathalon. Pt had trouble with left hip during Dec 2018 and recovered. The right hip pain is different and worse. The right hip pain at groin/ant thigh with flexion/adduction movement and at lateral hip hurts constantly. The pain is more noted when getting out of car or lifting hip up. The patient has trouble sleeping due to pain. The patient has not exercised since aprathon last and is asking what she can and can't do now. The patient works in cardiac rehab with multiple tasks. The patient cares for child and housework/yardwork. Pain Assessment Timing of Pain Assessment Timing of Pain Assessment Assessment Pain Scale Pain Scale Used Numeric (1 - 10) Self Report Pain Assessment Right Anterior Hip(s) Reported Pain Level 0 Pain Description Sharp Pain Frequency Intermittent Other Pain Description 4 with moving leg to get out of car Pain Aggravating Factors Exercise/Activity Right Hip(s) Reported Pain Level 2 Pain Description Sharp Radicular Pain Location lateral hip area Pain Frequency Continuous Other Pain Description worse at end of day from activity, 5 wit
--- NOTE | 2020-06-18 11:26 | PCPTNOTE ---
Patient cancelled apt this date without reason given.
--- NOTE | 2020-06-24 11:54 | PTOPEVAL ---
PHYSICAL THERAPY DISCHARGE Thank you for referring Deepa Reis to [facility].? The patient has completed 8 visits for the dx of right hip pain/sartorius sprain. Goals are met and PT DC'ed. Please review, sign, date and return this plan of care. I agree with and certify the following plan of care. Referring Physician Date Attending Provider: Octavia Terry PA-C *PT Outpatient Discharge Start: 05/28/20 07:37 Freq: Status: Active Protocol: Document 06/24/20 11:06 MLV (Rec: 06/24/20 11:[address] [facility] [id number]) Therapy Assessment Status Assessment Status Assessment Status Discharge Evaluation Information Problem Diagnosis right hip pain Onset 1 month ago Cause overuse from / marathon training Additional Evaluation Detail The patient feels her hip is 75-80% better than at initial eval. The patient has not started running again yet but feels it is not quite well enough. The patient is doing housework w/o pain and has started the anti inflammatory per the MD, which has helped improve her symptoms. Pain Assessment Timing of Pain Assessment Timing of Pain Assessment Assessment Self Report Self Report Pain Level 0 Pain Score Pain Score 0: Self Report Lower Extremity Muscle Strength Testing General Lower Extremity Strength Gross Lower Extremity Strength no remaining pain with ER, decreased pain with resisted hip flexion/adduction up to 4/ 5 resistance Muscle Length Testing Muscle Length Testing Piriformis w/Hip Flexion >90 Degrees (R) Mild Tightness,(L) Mild Tightness Left Hamstring Length -10 Query Text:(90 - 90 Position) Right Hamstring Length -10 Query Text:(90 - 90 Position) Gastrocnemius Length (R) WFL,(L) WFL Muscle Length Testing Comments improved at hamstring length and flexibility at piriformis Palpation Assessment Palpation Palpation 25%-50% decrease in tightness right ITB, right piriformis, and 50-75% decrease in right sartorius PT Clinical Summary Melida has been seen 8 visits for treatment with the dx of right hip pain/sartorius sprain. The patient has progressed
== END 2020-06-24 13:57 | disposition home or self-care (01) ==
LOC: ANHPT 11:00
PROVIDERS: PCP Family Medicine; Visit Provider Physician Assistant
DX: M25.559 Pain in unspecified hip (principal)
CPT/HCPCS: 97014; 97110; 97140; 97162; G0283

== ENCOUNTER 2020-07-03 13:16 | Outpatient (CLI) | payer OTHER, SELFPAY ==
[2020-07-03 14:24] LABS: Free T4 Free Thyroxine 1.05 ng/mL (0.78-2.19)
== END 2020-07-03 13:17 | disposition home or self-care (01) ==
PROVIDERS: PCP Family Medicine; Visit Provider Internal Medicine Endocrinology, Diabetes & Metabolism
DX: E03.9 Hypothyroidism, unspecified (principal)
CPT/HCPCS: 36415; 84439; 84443

== ENCOUNTER 2020-08-15 15:39 | Outpatient (CLI) | payer OTHER, SELFPAY ==
[2020-08-15 17:13] LABS: Thyroid Stimulating Hormone 0.845 uIU/mL (0.465-4.680)
[2020-08-15 18:17] LABS: Free T4 Free Thyroxine 1.21 ng/mL (0.78-2.19)
== END 2020-08-15 15:40 | disposition home or self-care (01) ==
LOC: ANHLAB 15:43
PROVIDERS: PCP Family Medicine; Visit Provider Internal Medicine Endocrinology, Diabetes & Metabolism
DX: E03.9 Hypothyroidism, unspecified (principal)
CPT/HCPCS: 36415; 84439; 84443

== ENCOUNTER 2020-12-05 10:51 | Outpatient (CLI) | payer OTHER, SELFPAY ==
--- NOTE | ~2020-12-05 | US_ITS ---
EXAMINATION: US OB <= 14 weeks fetus DATE: 12/05/2020 11:11 INDICATION: First trimester dating TECHNIQUE: Real-time pelvic transabdominal and transvaginal ultrasound was performed. COMPARISON: None. FINDINGS: The uterus measures 10.8 x 7.3 x 6.4 cm. There is an intrauterine gestational sac. A yolk sac is identified. heart motion is identified measuring 173 beats per minute (bpm) by M-mode Do ppler. The crown rump length measures 2.0 cm , which correlates with an estimated gestational a ge of 8 weeks and 4 day(s) (+/-) 5 day(s). The ovaries are not visualized however no adnexal abnormality is seen. There is no free fluid in the pelvis. IMPRESSION: 1. Live intrauterine with an estimated gestational age of 8 weeks and 4 day(s) (+/-) 5 day( s) and an estimated delivery date of 07/13/2021. Reviewed, dictated and finalized at location A. IMPRESSION: 1. Live intrauterine with an estimated gestational age of 8 weeks and 4 day(s) (+/-) 5 day(s) and an estimated delivery date of 07/13/2021.
== END 2020-12-05 10:52 | disposition home or self-care (01) ==
LOC: ANHIMG 10:52
PROVIDERS: PCP Family Medicine; Visit Provider Student in an Organized Health Care Education/Training Program
DX: Z34.91 Encounter for supervision of normal pregnancy, unspecified, first trimester (principal); Z3A.08 8 weeks gestation of pregnancy
CPT/HCPCS: 76801

== ENCOUNTER 2020-12-06 16:39 | Outpatient (CLI) | payer OTHER, SELFPAY ==
[2020-12-06 17:43] LABS: Basophils Percent Auto 0.6 % (0.2-1.2); Eosinophils Absolute Auto 0.3 K/mm3 (0-0.3); Eosinophils Percent Auto 4.3 % (0-4.4); Hematocrit 37.3 % (37.0-47.0); Hemoglobin 12.7 g/dL (12.0-15.0); Immature Granulocyte Absolute 0.02 K/mm3 (0.00-0.031); Immature Granulocyte Percent A 0.3 % (0-0.5); Lymphocytes Percent Auto 25.7 % (18.3-44.2); Mean Corpuscular Hemoglobin 29.4 pg (26-34); Mean Corpuscular Volume 86.3 fl (80-100); Monocytes Absolute Auto 0.5 K/mm3 (0.1-0.6); Monocytes Percent Auto 7.4 % (2.6-8.5); Neutrophils Absolute Auto 4.3 K/mm3 (1.3-6.7); Neutrophils Percent Auto 61.7 % (45.5-73.1); Platelet Count Result 215 k/mm3 (150-375); Red Blood Count 4.32 M/mm3 (4.2-5.4); Red Cell Distribution Width 12.6 % (11.5-14.5)
[2020-12-06 17:49] LABS: Add Urine Microscopic? YES; Amorphous Sediment Urine Few; Appearance Urine Cloudy (Clear); Bacteria Urine 1+ /hpf; Bilirubin Urine Negative (Negative); Blood Urine Negative (Negative); Color Urine Yellow (Yellow); Glucose Urine UA Negative (Negative); Ketones Urine Negative (Negative); Leukocyte Esterase Ur 3+ LEU/UL (NEGATIVE); Nitrate Urine Negative (Negative); Protein Urine Negative (Negative); Squamous Epithelial Cell Urine Many /hpf (Few); Urobilinogen Urine Negative mg/dL (<2.0); WBC Clumps Urine Present /HPF; WBC Urine 21-30 /hpf (0-3)
[2020-12-06 18:41] LABS: HIV 1/2 Ab P24 Ag Result Negative (Negative)
[2020-12-06 19:27] LABS: Hepatitis B Surface Antigen Negative (Negative); Rubella IgG Antibody 34.8 IU/ML
[2020-12-06 19:28] LABS: Free T4 Free Thyroxine 1.21 ng/mL (0.78-2.19); Vitamin D 25 Hydroxy 52.2 ng/mL
[2020-12-06 19:42] LABS: Hepatitis C Virus Antibody Negative (Negative)
[2020-12-07 15:38] LABS: Rapid Plasma Reagin Non-Reactive (NonReactive)
[2020-12-11 05:28] LABS: Triiodothyronine T3 Free 2.2 pg/mL (2.3-4.2)
== END 2020-12-06 16:40 | disposition home or self-care (01) ==
LOC: ANHLAB 16:40
PROVIDERS: PCP Family Medicine; Visit Provider Student in an Organized Health Care Education/Training Program
DX: Z34.90 Encounter for supervision of normal pregnancy, unspecified, unspecified trimester (principal)
CPT/HCPCS: 36415; 81001; 82306; 84439; 84443; 84481; 85025; 86592; 86703; 86762; 86787; 86803; 86850; 86900; 86901; 87086; 87340; G0432

== ENCOUNTER 2021-02-05 15:12 | Outpatient (CLI) | payer OTHER, SELFPAY ==
[2021-02-05 17:15] LABS: Free T4 Free Thyroxine 1.11 ng/mL (0.78-2.19)
[2021-02-05 17:29] LABS: Total Triiodothyronine (T3) 1.41 NG/ML (0.97-1.69)
== END 2021-02-05 15:13 | disposition home or self-care (01) ==
LOC: ANHLAB 15:14
PROVIDERS: PCP Family Medicine; Visit Provider Student in an Organized Health Care Education/Training Program
DX: Z34.81 Encounter for supervision of other normal pregnancy, first trimester (principal)
CPT/HCPCS: 36415; 84439; 84443; 84480

== ENCOUNTER 2021-02-19 16:25 | Outpatient (CLI) | payer OTHER, SELFPAY ==
--- NOTE | ~2021-02-19 | US_ITS ---
EXAMINATION: US OB /maternal detail DATE: 02/19/2021 17:33 INDICATION: Second trimester anatomic survey TECHNIQUE: Real-time ultrasound of the pelvis was performed. COMPARISON: None. FINDINGS: There is a single living fetus in variable presentation. The placenta is anterior and 7.8 cm from the internal cervical os. heart rate is 165 beats per minute (bpm). cardiac activity and fe latha movement are noted. The amniotic fluid index is subjectively normal. The following anatomy was identified as normal: 4 chamber heart 3 vessel cord cord insertion kidneys urinary bladder stomach spine diaphragm ventricles cisterna magna cerebellum The following biometric data were obtained: Biparietal diameter (BPD): 4.7 cm; head circumference (HC): 17.8 cm; abdominal circumference (AC): 16 .7 cm; femur length (FL): 3.3 cm. These measurements are concordant. Estimated weight is 391 g +/- 58 g, which correlates with the >97th percentile when 07/13/2021 is used as estimated date of delivery. As single measurements, these parameters are each equal to the following estimated gestational ages w ith ranges of +/- 2 standard deviations: BPD: 20 weeks 3 days +/- 1 weeks 5 days. HC: 20 weeks 2 days +/- 1 weeks 3 days. AC: 21 weeks 5 days +/- 2 weeks 0 days. FL: 20 weeks 2 days +/- 1 weeks 6 days. estimated gestational age based solely on measurements from this exam is 20 weeks 5 days +/- 1 weeks 3 days. IMPRESSION: 1. Single living fetus in variable presentation. 2. Estimated weight is 391 g +/- 58 g, which correlates with the >97th percentile when 07/13/2021 is used as estimated date of delivery. Reviewed, dictated and finalized at location F. COM NETWORK MANAGER IMPRESSION: 1. Single living fetus in variable presentation. 2. Estimated weight is 391 g +/- 58 g, which correlates with the >97th pe rcentile when 07/13/2021 is used as estimated date of delivery.
== END 2021-02-19 16:26 | disposition home or self-care (01) ==
LOC: ANHIMG 16:26
PROVIDERS: PCP Family Medicine; Visit Provider Student in an Organized Health Care Education/Training Program
DX: Z34.92 Encounter for supervision of normal pregnancy, unspecified, second trimester (principal); Z3A.20 20 weeks gestation of pregnancy
CPT/HCPCS: 76805

== ENCOUNTER 2021-04-14 07:58 | Outpatient (CLI) | payer OTHER, SELFPAY ==
[2021-04-14 09:48] LABS: Basophils Absolute Auto 0.1 K/mm3 (0.0-0.1); Eosinophils Absolute Auto 0.3 K/mm3 (0-0.3); Eosinophils Percent Auto 3.2 % (0-4.4); Hematocrit 37.8 % (37.0-47.0); Hemoglobin 12.7 g/dL (12.0-15.0); Immature Granulocyte Absolute 0.17 K/mm3 (0.00-0.031); Immature Granulocyte Percent A 1.9 % (0-0.5); Lymphocytes Absolute Auto 1.77 K/mm3 (0.9-3.2); Lymphocytes Percent Auto 19.6 % (18.3-44.2); Mean Corpuscular HGB Conc 33.6 g/dl (32-36); Mean Corpuscular Hemoglobin 30.5 pg (26-34); Mean Corpuscular Volume 90.6 fl (80-100); Mean Platelet Volume 9.7 fl (7.4-10.4); Monocytes Absolute Auto 0.8 K/mm3 (0.1-0.6); Monocytes Percent Auto 8.5 % (2.6-8.5); Neutrophils Percent Auto 65.8 % (45.5-73.1); Platelet Count Result 208 k/mm3 (150-375); Red Blood Count 4.17 M/mm3 (4.2-5.4); Red Cell Distribution Width 13.1 % (11.5-14.5)
[2021-04-14 10:00] LABS: Glucose 1 Hour PP 50gm Dose 83 mg/dL
[2021-04-14 10:28] LABS: Thyroid Stimulating Hormone 0.835 uIU/mL (0.465-4.680)
[2021-04-14 10:40] LABS: Free T4 Free Thyroxine 1.29 ng/mL (0.78-2.19)
== END 2021-04-14 07:59 | disposition home or self-care (01) ==
LOC: ANHLAB 07:59
PROVIDERS: PCP Family Medicine; Visit Provider Student in an Organized Health Care Education/Training Program
DX: Z34.82 Encounter for supervision of other normal pregnancy, second trimester (principal); E03.9 Hypothyroidism, unspecified
CPT/HCPCS: 36415; 82947; 84439; 84443; 85025

== ENCOUNTER 2021-05-29 07:15 | Outpatient (CLI) | payer OTHER, SELFPAY ==
[2021-05-29 08:10] LABS: Basophils Absolute Auto 0.1 K/mm3 (0.0-0.1); Eosinophils Absolute Auto 0.3 K/mm3 (0-0.3); Eosinophils Percent Auto 3.2 % (0-4.4); Hematocrit 37.2 % (37.0-47.0); Hemoglobin 12.9 g/dL (12.0-15.0); Immature Granulocyte Absolute 0.12 K/mm3 (0.00-0.031); Immature Granulocyte Percent A 1.4 % (0-0.5); Lymphocytes Absolute Auto 1.88 K/mm3 (0.9-3.2); Lymphocytes Percent Auto 21.6 % (18.3-44.2); Mean Corpuscular HGB Conc 34.7 g/dl (32-36); Mean Corpuscular Hemoglobin 30.6 pg (26-34); Mean Corpuscular Volume 88.4 fl (80-100); Mean Platelet Volume 10.1 fl (7.4-10.4); Monocytes Absolute Auto 0.7 K/mm3 (0.1-0.6); Monocytes Percent Auto 7.8 % (2.6-8.5); Neutrophils Absolute Auto 5.7 K/mm3 (1.3-6.7); Platelet Count Result 163 k/mm3 (150-375); Red Blood Count 4.21 M/mm3 (4.2-5.4); Red Cell Distribution Width 13.6 % (11.5-14.5); White Blood Count 8.7 K/mm3 (4.5-10.0)
[2021-05-29 09:00] LABS: HIV 1/2 Ab P24 Ag Result Negative (Negative)
[2021-05-29 09:01] LABS: Free T4 Free Thyroxine 0.99 ng/mL (0.78-2.19)
[2021-05-29 09:35] LABS: Rapid Plasma Reagin Non-Reactive (NonReactive)
== END 2021-05-29 07:16 | disposition home or self-care (01) ==
PROVIDERS: PCP Family Medicine; Visit Provider Student in an Organized Health Care Education/Training Program
DX: Z34.93 Encounter for supervision of normal pregnancy, unspecified, third trimester (principal); Z3A.33 33 weeks gestation of pregnancy
CPT/HCPCS: 36415; 84439; 84443; 85025; 86592; 86703; G0432

== ENCOUNTER 2021-07-07 13:53 | Inpatient (IN) | payer OTHER, SELFPAY ==
[2021-07-07] VITALS (13 sets, daily range): BP systolic 116–142; BP diastolic 42–82; PULSE 52–93; RESP 16; TEMP 36.4–36.7; O2SAT 99–100; BMI 30.2
--- NOTE | 2021-07-07 14:30 | LDADM ---
This patient, Deepa Reis, was admitted to Labor/Delivery/Recovery 105 on 07/07/21 at 13:53. Plans for labor, pain management and were discussed with patient. Patient/family oriented to hospital policies and general routines including ID bracelet, bed and alarms, visiting hours, pain management, procedures, bathroom and other care routines, personal items, smoking policy, room service/diet and guest tray routines, infant security routines, and visiting hours. Patient/Family are encouraged to report perceived risks to care and to ask questions if they do not understand what they are told or what they should do. See OBIX for further documentation.
--- NOTE | 2021-07-07 14:41 | WPDANESEPP ---
Anes - Eval Pre Procedure Procedure: labor epidural Date/Time: 07/07/21 14:41 Preop Diagnosis: labor Pre Op Diagnosis: Labor Patient Data Age: 31 Gender: F Height: 1.73 m Weight: 90 kg Last Vital Signs O2 Del Method Room Air 07/07/21 14:28 Allergies Allergy/AdvReac Type Severity Reaction Status Date / Time Penicillins Allergy Intermediate Hives Verified 07/07/21 14:38 Home Medications Medication Instructions Recorded Confirmed Type loratadine 10 mg tablet (Claritin) 10 mg PO DAILY 04/06/19 07/07/21 History fluticasone propionate 50 1 spray intranasal DAILY PRN 04/16/20 06/19/21 History mcg/actuation nasal allergies spray,suspension levothyroxine 125 mcg tablet 125 mcg PO DAILY 90 days #90 tabs 02/10/21 07/07/21 Rx vit no.95-ferrous See Rx Instructions .Route 06/17/21 07/07/21 Rx fumarate 28 mg-folic acid 800 mcg .COMPLEX #90 tabs tablet () hydrocortisone-pramoxine 2.5 %-1 % 1 applic RECTAL QID PRN 06/26/21 07/07/21 Rx rectal cream (Analpram-HC) hemorrhoids #30 grams Results Review: All pre-operative results and documents have been reviewed as part of the pre-operative evaluation. [facility] Past Medical History Medical History Acid reflux Encounter for supervision of normal first in second trimester History of broken nose Hypothyroidism Vaginal delivery Surgical History Surgical History [place] teeth removed Family History Family History Father Family history of hypercholesterolemia Hypertension Cerebrovascular accident, Onset Age: 40 Hypothyroidism Heart disease Acute myocardial infarction Mother Depression Family history of hypercholesterolemia Hypertension Sibling Asthma Grandparent Family history of cardiovascular disease Social History Social History Smoking status: Never smoker Second hand tobacco smoke exposure: No Alcohol intake: former Alcohol use details: None since Substance use: never Substance use type: does not use Gender identity (if verbalized by the patient): Female Spiritual care concerns: No Exam Day of Procedure 07/07/21 14:41
[2021-07-07 15:02] LABS: Basophils Absolute Auto 0.1 K/mm3 (0.0-0.1); Basophils Percent Auto 0.7 % (0.2-1.2); Eosinophils Absolute Auto 0.2 K/mm3 (0-0.3); Eosinophils Percent Auto 1.5 % (0-4.4); Hematocrit 40.9 % (37.0-47.0); Hemoglobin 14.5 g/dL (12.0-15.0); Immature Granulocyte Absolute 0.09 K/mm3 (0.00-0.031); Immature Granulocyte Percent A 0.6 % (0-0.5); Lymphocytes Absolute Auto 2.13 K/mm3 (0.9-3.2); Lymphocytes Percent Auto 14.3 % (18.3-44.2); Mean Corpuscular HGB Conc 35.5 g/dl (32-36); Mean Corpuscular Hemoglobin 30.4 pg (26-34); Mean Corpuscular Volume 85.7 fl (80-100); Mean Platelet Volume 10.5 fl (7.4-10.4); Monocytes Absolute Auto 0.9 K/mm3 (0.1-0.6); Monocytes Percent Auto 6.2 % (2.6-8.5); Neutrophils Absolute Auto 11.5 K/mm3 (1.3-6.7); Neutrophils Percent Auto 76.7 % (45.5-73.1); Platelet Count Result 230 k/mm3 (150-375); Red Blood Count 4.77 M/mm3 (4.2-5.4); Red Cell Distribution Width 13.4 % (11.5-14.5); White Blood Count 14.9 K/mm3 (4.5-10.0)
[2021-07-07] MEDS: OXYTOCIN 30 UNITS/NS 500 ML 30 UNITS/500 ML BAG 999 UNITS IV CONT (15:28)
[2021-07-07] MEDS: OXYTOCIN 30 UNITS/NS 500 ML 30 UNITS/500 ML BAG 125 UNITS IV CONT (16:06)
[2021-07-07] MEDS: BENZOCAINE 20% AER SPR (*SP) 56 GM CAN 1 SPRAY (16:06)
[2021-07-07] MEDS: WITCH HAZEL 40 PADS 1 PAD (16:06)
--- NOTE | 2021-07-07 16:18 | PM.IMHP ---
H&P: HPI History of Present Illness Date/Time: 07/07/21 16:18 Chief Complaint: Contractions Leakage of fluid Narrative: The patient is a 31yo LMP 09/09/20 currently 39w1d gestation with CHRISTY 07/13/21 who presented to L&D with complaints of contractions and leakage of fluid. Patient is dated by US on 12/05/20 at 8w gestation. Patient reports contractions for past several weeks. She reports increased in frequency and intensity of contractions at approximately noon today. At 1:13 p.m., patient reports leakage of blood tinged fluid. Upon arrival to L&D, patient was noted to be 4cm dilated and grossly ruptured with meconium stained amniotic fluid. Decision made to admit patient to L&D in active labor. Review of Systems Review of Systems: All systems reviewed & are unremarkable except as noted in HPI and below Constitutional: Constitutional: Reports as per HPI and Reports no additional constitutional complaints Eyes: Eyes: Reports as per HPI and Reports no additional eye complaints ENT: Reports system reviewed and no additional complaints, except as documented and Reports as per HPI Cardiovascular: Cardiovascular: Reports as per HPI and Reports no additional cardiovascular complaints Respiratory: Respiratory: Reports as per HPI and Reports no additional respiratory complaints Gastrointestinal: Gastrointestinal: Reports as per HPI and Reports no additional gastrointestinal complaints Genitourinary: Genitourinary: Reports no additional female genitourinary complaints and Reports as per HPI Musculoskeletal: Musculoskeletal: Reports no additional musculoskeletal complaints and Reports as per HPI Integumentary/Breasts: Skin/Breast: Reports system reviewed and no additional complaints, except as docu and Reports as per HPI Psychiatric: Psychiatric: Reports no additional psychiatric complaints and Reports as per HPI Endocrine: Endocrine: Reports no additional endocrine complaints and Reports as per HPI Hematologic/Lymphatic: Hematologic/Lymphatic: Reports no additional hematologic/lymphatic complaints and Reports as per HPI Allergic/Immunologic: Allergic/Immunologic: Reports no additional allergic/immunologic complaints and Reports as per HPI [facility] Past Medical History Medical History Acid reflux Encounter for supervision of normal first in second trimester History of broken nose Hypothyroidism Vaginal delivery Surgical History Surgical History [place] teeth removed Family History Family History Father Family history of hypercholesterolemia Hypertension Cerebrovascular accident, Onset Age: 40 Hypothyroidism Heart disease Acute myocardial infarction Mother Depression Family history of hypercholesterolemia Hypertension Sibling Asthma Grandparent Family history of cardiovascular disease Social History Social History Smoking status: Never smoker Second hand tobacco smoke exposure: No Alcohol intake: former Alcohol use details: None since Substance use: never Substance use type: does not use Gender identity (if verbalized by the patient): Female Spiritual care concerns: No Meds Home Medications and Allergies Home Medications Medication Instructions Recorded Confirmed Type loratadine 10 mg tablet (Claritin) 10 mg PO DAILY 04/06/19 07/07/21 History fluticasone propionate 50 1 spray intranasal DAILY PRN 04/16/20 06/19/21 History mcg/actuation nasal allergies spray,suspension levothyroxine 125 mcg tablet 125 mcg PO DAILY 90 days #90 tabs 02/10/21 07/07/21 Rx vit no.95-ferrous See Rx Instructions .Route 06/17/21 07/07/21 Rx fumarate 28 mg-folic acid 800 mcg .COMPLEX #90 tabs tablet () hydrocortisone-pramoxine 2.5 %-1 % 1 applic RE
--- NOTE | 2021-07-07 16:19 | P.PCNOB_ITS ---
OB - Delivery Note Procedure Delivery date: 07/07/21 Procedure: The patient is a 31-year-old now who presented to labor and delivery on 07/07/2021 at 39 weeks 1 day gestation in labor. Patient reports contractions for past several weeks, however, reported worsening of contractions at approximately noon today. She reports spontaneous rupture of membranes at 1:13 p.m. Patient reports clear, however, blood-tinged fluid at that time. Upon presentation to labor and delivery, patient was noted to be 4 cm dilated and grossly ruptured with meconium-stained amniotic fluid. Patient declined any pain interventions and progressed on own. Patient progressed to fully dilated at approximately 3:24 p.m. Patient was prepped and draped for delivery and encouraged to push. At 3:27 p.m., patient delivered head atraumatically and without difficulty in STORM presentation. Occiput restituted to maternal right side. With subsequent push, the infant's neck, shoulders, rest of body delivered without difficulty. The infant was crying spontaneously. Nose and mouth were suctioned with bulb suction. Cord was clamped and cut and was placed on maternal abdomen where care was assumed by awaiting nursing staff. A segment of cord was collected for cord gases. Cord blood was collected. The placenta was delivered spontaneously and intact. Uterine fundus was noted to be firm with massage. On inspection, a periurethral laceration was noted. 1% lidocaine was administered for local analgesia. Laceration was repaired with 3-0 Vicryl in the usual fashion. Excellent hemostasis was noted. Straight catheterization was performed with return of clear urine. Patient was cleansed and dried. Estimated blood loss for entire delivery was 150 cc. Infant was a liveborn female infant, Apgars 8 and 9, weighing 8 lb 2 oz. Both mother and baby doing well at end delivery. Delivery monitor: External FHT and External Uterine Route of delivery: Laceration Description: Periurethral Delivery repair: vicryl (3-0) Specimen: Yes (cord gases and cord blood) Quantitative Blood Loss (ml): 150 Anesthesia type: None Disposition: Floor Complications: No immediate complications [place] Baby Date of : 07/07/21 Time of : 15:27 Weeks of gestation at delivery: 39 (39.1) gender: Female Weight (pounds): 8 Weight (ounces): 2 presentation: vertex position: Right Occiput Anterior Placenta delivery description: Spontaneous Cord Vessel Description: 3 Vessels score one minute: 8 score five minutes: 9 AMG Delivery Billing Delivery Delivery: Delivery Charge
[2021-07-07] MEDS: IBUPROFEN 600 MG TABLET PO ×2 (16:26→23:15)
[2021-07-07] MEDS: ACETAMINOPHEN 325 MG TABLET 650 MG PO ×2 (17:14→23:15)
[2021-07-07] MEDS: BENZOCAINE 20% AER SPR (*SP) 56 GM CAN 1 SPRAY TOPICAL (17:31)
[2021-07-07] MEDS: DIBUCAINE 1% OINTMENT 30 GM TUBE 1 APPLIC TOPICAL (17:31)
[2021-07-07] MEDS: WITCH HAZEL 40 PADS 1 PAD TOPICAL (17:32)
--- NOTE | 2021-07-07 17:46 | PC.NURSE ---
Patient transferred to post room #287 ambulatory from labor and delivery. Support person present. Oriented to unit, room, information board, rooming in, admission packet and security measures. Patient verbalizes understanding.
[2021-07-07] MEDS: DOCUSATE SODIUM 100 MG CAPSULE PO (19:01)
[2021-07-08 03:23] VITALS: BP 114/63; PULSE 64; RESP 16; TEMP 36.4; O2SAT 99
[2021-07-08 04:37] LABS: Hematocrit 36.3 % (37.0-47.0); Hemoglobin 12.3 g/dL (12.0-15.0)
[2021-07-08] MEDS: IBUPROFEN 600 MG TABLET PO (07:57)
[2021-07-08] MEDS: DOCUSATE SODIUM 100 MG CAPSULE PO (07:57)
[2021-07-08] MEDS: MULTIVIT/MIN/PREN/FOL AC/IRON TABLET 1 TAB PO (07:57)
[2021-07-08 08:05] VITALS: BP 123/69; PULSE 72; RESP 18; TEMP 37.3; O2SAT 99
[2021-07-08 08:38] LABS: Rapid Plasma Reagin Non-Reactive (NonReactive)
--- NOTE | 2021-07-08 09:27 | PC.NURSE ---
[id number] Introductions were made, then consulted with patient to assess needs related to . Mother led the conversation with her experience feeding her so far. Mother works well with her . Mother has infant latched to the left breast in cross cradle position with infant right arm crossing body. Latch visualized at less than 90 degrees but mom denies any pain or discomfort. Infant detached to assess nipple for shape. There is slight misshaping to the nipple. may have started off with an optimal latch, then changed to shallow mom suspects. Encouraged understanding of the benefits of skin to skin (unwrapping infant and placing vertically on her chest), responsive feeding and how to watch for early feeding signs, frequency of feeding on demand about every 8-12 times in 24 hours (every 2-3 hours), milk production, duration of feeding, signs of adequate intake/output and how to record on the feeding sheet. Reviewed positioning and ear, shoulder, hip alignment, supporting the breast, asymmetrical latch (off-center), and leading with the chin with a big open side gape. Infant latched optimally to the right breast in football position. Education given to mother of how to visualize suck/swallow ratios and drinking at the breast. was able to maintain latch without discomfort to mother. Nipple care reviewed with optimal latch and good positioning. Reminding mother of comfort measures of healing with a warm and wet washcloth to rinse breast, then leave open to air-dry as needed. Reviewed good handwashing when or touching the breast/nipples to prevent infection. Mother demonstrates understanding of responsive feedings, stimulating with skin to skin, touch, talking to to encourage if it has been 2 -3 hours since the start of the last , to call if does not latch or there is discomfort with . Reported to the primary RN.
[2021-07-08 12:09] VITALS: BP 113/58; PULSE 66; RESP 16; TEMP 36.6; O2SAT 98
[2021-07-08] MEDS: ACETAMINOPHEN 325 MG TABLET 650 MG PO (12:16)
--- NOTE | 2021-07-08 13:14 | P.PNOB_ITS ---
OB - PN: Subj Subjective Date/time seen: 07/08/21 8:15 Patient doing well. Minimal lochia. Denies any significant abdominal or pelvic pain. Ambulating without difficulty. Voiding well. OB - PN: Obj Data Labs CBC & Chem 7: 07/08/21 04:18 Labs: Laboratory Results - last 24 hr 07/07/21 07/07/21 07/07/21 14:51 14:51 17:19 WBC 14.9 H RBC 4.77 Hgb 14.5 Hct 40.9 MCV 85.7 MCH 30.4 MCHC 35.5 RDW 13.4 Plt Count 230 MPV 10.5 H Immature Gran % (Auto) 0.6 H Neut % (Auto) 76.7 H Lymph % (Auto) 14.3 L Forrest % (Auto) 6.2 Eos % (Auto) 1.5 Baso % (Auto) 0.7 Lymph # (Auto) 2.13 Forrest # (Auto) 0.9 H Eos # (Auto) 0.2 Baso # (Auto) 0.1 Abs Immat Gran (auto) 0.09 H Absolute Neuts (auto) 11.5 H Absolute Nucleated RBC 0.0 Nucleated RBC % 0.0 RPR Non-reactive Blood Type B Positive Antibody Screen Negative 07/08/21 04:18 WBC RBC Hgb 12.3 Hct 36.3 L MCV MCH MCHC RDW Plt Count MPV Immature Gran % (Auto) Neut % (Auto) Lymph % (Auto) Forrest % (Auto) Eos % (Auto) Baso % (Auto) Lymph # (Auto) Forrest # (Auto) Eos # (Auto) Baso # (Auto) Abs Immat Gran (auto) Absolute Neuts (auto) Absolute Nucleated RBC Nucleated RBC % RPR Blood Type Antibody Screen OB - PN A/P Assessment and Plan (1) Normal spontaneous vaginal delivery: Code(s): O80 - Encounter for full-term uncomplicated delivery Status: Acute Assessment and Plan: PPD#1 doing well continue routine care pt requesting dc home today emergency precautions reviewed f/u in office in 4-6 weeks Time Spent With Patient Time: Total time spent is greater than 50% in coordination of care (as documented) at patient's floor/unit and/or counseling patient: Exam Const: General: cooperative, healthy appearing, comfortable and no acute distress GI: GI Palp: Yes Soft to palpation and No Tenderness to palpation present (GI) Other: fundus firm below umbilicus Extrem: Right lower extremity: no edema Left lower extremity: no edema Other: no calf tenderness
--- NOTE | 2021-07-08 13:18 | PM.OBDSVD ---
DS: Admitting Diagnosis Discharge Date 07/08/21 Admitting Diagnosis Active labor at term OB - DS: Summary OB Procedures : None OB Procedures Intrapartum: Spontaneous Vag Delivery OB Procedures: : None Time Spent with Patient Time attestation: Total time spent providing and/or coordinating discharge services: DS: Data Data Completed and Pending Labs on day of discharge: Labs from last 24 hours 07/08/21 07/07/21 07/07/21 04:18 17:19 14:51 WBC RBC Hgb 12.3 Hct 36.3 L MCV MCH MCHC RDW Plt Count MPV Immature Gran % (Auto) Neut % (Auto) Lymph % (Auto) [place] % (Auto) Eos % (Auto) Baso % (Auto) Lymph # (Auto) [place] # (Auto) Eos # (Auto) Baso # (Auto) Abs Immat Gran (auto) Absolute Neuts (auto) Absolute Nucleated RBC Nucleated RBC % RPR Non-reactive Blood Type B Positive Antibody Screen Negative 07/07/21 14:51 WBC 14.9 H RBC 4.77 Hgb 14.5 Hct 40.9 MCV 85.7 MCH 30.4 MCHC 35.5 RDW 13.4 Plt Count 230 MPV 10.5 H Immature Gran % (Auto) 0.6 H Neut % (Auto) 76.7 H Lymph % (Auto) 14.3 L Edmunds % (Auto) 6.2 Eos % (Auto) 1.5 Baso % (Auto) 0.7 Lymph # (Auto) 2.13 Edmunds # (Auto) 0.9 H Eos # (Auto) 0.2 Baso # (Auto) 0.1 Abs Immat Gran (auto) 0.09 H Absolute Neuts (auto) 11.5 H Absolute Nucleated RBC 0.0 Nucleated RBC % 0.0 RPR Blood Type Antibody Screen Discharge Plan Discharge Attending physician on discharge: Gayle Corcoran Discharging Clinician: Gayle Corcoran Anticipated Discharge Date/Time: 07/08/21 16:00 Patient Disposition: Home, Self-Care Activity: as tolerated and pelvic rest Diet: regular Discharge Instructions: Call office ([phone]) to schedule a visit in 4-6 weeks. You may take Ibuprofen 600mg every 6 hours as needed for pain. Pain medication may make you constipated. It may be helpful to take an [id number] stool softener, such as Colace and/or Senokot, along with the pain medication to help lessen constipation. Call office or go to ED for pain not controlled with medication, headache, chest pain, shortness of breath, fever, chills, persistent nausea or vomiting, severe abdominal pain, heavy vaginal bleeding >2 pads/hour, foul vaginal discharge or odor, or problems with your breasts. Patient Instructions: Antibiotic Form Stand Alone Forms: General Discharge Information Follow-up/Referrals: Gayle Corcoran MD [Physician] - Discharge Medications: Continued loratadine [Claritin] 10 mg tablet 10 mg PO DAILY fluticasone propionate 50 mcg/actuation spray,suspension 1 spray NASAL DAILY PRN (Reason: allergies) Rx Instructions: administer into each nostril hydrocortisone-pramoxine [Analpram-HC] 2.5-1 % cream 1 applic RECTAL QID PRN (Reason: hemorrhoids) Qty: 30 0RF levothyroxine 125 mcg tablet 125 mcg PO DAILY 90 Days Qty: 90 1RF PNV cmb#95-ferrous fumarate-FA [] 28 mg iron- 800 mcg tablet See Rx Instructions .ROUTE .COMPLEX Qty: 90 3RF Dose Instruction: TAKE 1 TABLET BY MOUTH DAILY Rx Instructions: TAKE 1 TABLET BY MOUTH DAILY Date of admission: 07/07/21 13:53 Primary Care Provider: Rosemarie Belle Admitting Provider: Gayle Corcoran Attending physician on admission: Gayle Corcoran Condition: Stable
--- NOTE | 2021-07-08 14:57 | PC.NURSE ---
1350 - Mother verbalizes she is able to independently latch infant with appropriate positioning/alignment. She denies any nipple discomfort and is responsively . Mother declines any additional assistance/education at this time. Mother is encouraged to call for assistance if her infant doesn?t latch or there is discomfort with latching. Mother voiced understanding of information shared and mom and baby guide reviewed for additional resource information . Reported to the primary RN.
[2021-07-09 10:49] VITALS: BP 127/75; PULSE 76; RESP 20; TEMP 36.4; O2SAT 98
== END 2021-07-08 18:42 | disposition home or self-care (01) | DRG 807 ==
LOC: ANHLDR 14:18 → ANHOB2 17:51
PROVIDERS: Admitting Provider Student in an Organized Health Care Education/Training Program; PCP Family Medicine; Visit Provider Student in an Organized Health Care Education/Training Program
DX: O77.0 Labor and delivery complicated by meconium in amniotic fluid (principal); Z37.0 Single live birth; O99.284 Endocrine, nutritional and metabolic diseases complicating childbirth; E03.9 Hypothyroidism, unspecified; O71.82 Other specified trauma to perineum and vulva; Z3A.39 39 weeks gestation of pregnancy
CPT/HCPCS: 36415; 84112; 85014; 85018; 85025; 86592; 86850; 86900; 86901; A9270; J2590

== ENCOUNTER 2021-08-13 08:05 | Outpatient (CLI) | payer OTHER, SELFPAY ==
[2021-08-13 09:58] LABS: Free T4 Free Thyroxine 1.54 ng/mL (0.78-2.19)
[2021-08-13 10:05] LABS: Thyroid Stimulating Hormone 0.091 uIU/mL (0.465-4.680)
== END 2021-08-13 08:06 | disposition home or self-care (01) ==
PROVIDERS: PCP Family Medicine; Visit Provider Internal Medicine Endocrinology, Diabetes & Metabolism
DX: E03.9 Hypothyroidism, unspecified (principal)
CPT/HCPCS: 36415; 84439; 84443

== ENCOUNTER 2021-09-25 15:00 | Outpatient (RCR) | payer OTHER, SELFPAY ==
--- NOTE | 2021-09-10 14:56 | PTOPEVAL ---
PHYSICAL THERAPY EVALUATION AND PLAN OF CARE Thank you for referring Deepa Reis to [facility] [place] The patient is scheduled to be seen for therapy? 3-6visits over 6 wks. Please review, sign, date and return this plan of care YUVAL. I agree with and certify that the following plan of care is medically necessary. Referring Physician Date Attending Provider: Gayle Corcoran MD Problem Diagnosis urinary incontinence Subjective Information specific complaint is with Query Text:As Reported By Patient/ running and jumping and Family sneezing. Reports no urge incontinence. Reports she is a runner and just started crossfit. She does think she has a diastasis recti. she has had two pregnancies, both vaginal deliveries full term without complications. Currently . Lumbar ROM Reason Not Measured WFL/Left,WFL/Right Lower Extremity Range of Motion General Lower Extremity Range of Motion Gross Lower Extremity Range of Motion generally WFL; limited end Comments range hip internal rotation bilterally but left worse than right; Lower Extremity Muscle Strength Testing General Lower Extremity Strength Gross Lower Extremity Strength left hip flexion: 4-/5 left hip external rotation: 4/ 5 left hip abduction: 4-/5 left hip extension: 3+/5 right hip flexion: 4+/5 right hip external rotation: 3 /5 right hip abduction: 4+/5 bilateral hip adduction: 3+/5 Muscle Length Testing Muscle Length Testing Idris Test Shortened Muscles Short (R) Iliopsoas,Short (R) Rectus Femoris Piriformis w/Hip Flexion >90 Degrees (R) Moderate Tightness,(L) Moderate Tightness Posture Posture Supine Position Pelvis Posture (R) Rotated Anterior Leg Length Discrepancy right leg appears short which is consistent with right anterior innominate Pelvic Health Evaluation Pelvic Floor Assessment Permission Received for External/ Yes Internal Perineal Exam External Perineal Body Mobility Present Voluntary External Perineal Body Mobility Present Involuntary External Perineal Body Palpation tender left adductor tendons Internal Perineal Body Palpation tender left levator ani Sustained Levator Ani Strength
--- NOTE | 2021-09-25 15:49 | PTOPEVAL ---
PHYSICAL THERAPY DISCHARGE NOTE Thank you for referring Deepa Reis to [facility]. Please review, sign, date and return this plan of care YUVAL. I agree with and certify that the following plan of care is medically necessary. Referring Physician Date Attending Provider: Gayle Corcoran MD Diagnosis urinary incontinence Subjective Information States that she has been Query Text:As Reported By Patient/ consistent with her HEP and Family was able to run 1.5 miles twice without any leakage. She feels stronger during crossfit . Pain Assessment Timing of Pain Assessment Timing of Pain Assessment Assessment Self Report Self Report Pain Level 0 Pain Score Pain Score 0: Self Report Pelvic Health Evaluation Pelvic Floor Assessment Sustained Levator Ani Strength 4/5 [id number] hold PT Clinical Summary Melida is a 31 yo female participating in skilled physical therapy to address pelvic floor leakage while running and exercising. She is demonstrating increased pelvic floor strength and endurance and decreased leakage. will d/c to [facility] at this time.
== END 2021-09-26 14:04 | disposition home or self-care (01) ==
LOC: ANHPT 15:00
PROVIDERS: PCP Family Medicine; Visit Provider Student in an Organized Health Care Education/Training Program
DX: R32 Unspecified urinary incontinence (principal)
CPT/HCPCS: 97110; 97112; 97140; 97162

== ENCOUNTER 2021-10-03 13:49 | Outpatient (CLI) | payer OTHER, SELFPAY ==
[2021-10-03 15:08] LABS: Free T4 Free Thyroxine 1.52 ng/mL (0.78-2.19)
[2021-10-03 15:16] LABS: Thyroid Stimulating Hormone < 0.015 uIU/mL (0.465-4.680)
== END 2021-10-03 13:50 | disposition home or self-care (01) ==
PROVIDERS: PCP Family Medicine; Visit Provider Internal Medicine Endocrinology, Diabetes & Metabolism
DX: E03.9 Hypothyroidism, unspecified (principal)
CPT/HCPCS: 36415; 84439; 84443

== ENCOUNTER 2021-11-11 13:33 | Outpatient (CLI) | payer OTHER, SELFPAY ==
[2021-11-11 14:04] LABS: Hematocrit 43.5 % (37.0-47.0); Hemoglobin 14.6 g/dL (12.0-15.0); Mean Corpuscular HGB Conc 33.6 g/dl (32-36); Mean Corpuscular Hemoglobin 28.2 pg (26-34); Mean Platelet Volume 9.9 fl (7.4-10.4); Platelet Count Result 246 k/mm3 (150-375); Red Blood Count 5.18 M/mm3 (4.2-5.4); Red Cell Distribution Width 12.3 % (11.5-14.5); White Blood Count 5.9 K/mm3 (4.5-10.0)
[2021-11-11 14:29] LABS: Iron 53 ug/dL (37-170)
[2021-11-11 14:39] LABS: Percent Iron Saturation 18 % (20-50)
== END 2021-11-11 13:34 | disposition home or self-care (01) ==
LOC: ANHLAB 13:35
PROVIDERS: PCP Family Medicine; Visit Provider Physician Assistant
DX: D64.9 Anemia, unspecified (principal); R53.83 Other fatigue
CPT/HCPCS: 36415; 82728; 83540; 83550; 85027

== ENCOUNTER 2021-11-11 13:37 | Outpatient (CLI) | payer OTHER, SELFPAY ==
[2021-11-11 14:47] LABS: Free T4 Free Thyroxine 0.85 ng/mL (0.78-2.19)
== END 2021-11-11 13:38 | disposition home or self-care (01) ==
LOC: ANHLAB 13:38
PROVIDERS: PCP Family Medicine; Visit Provider Internal Medicine Endocrinology, Diabetes & Metabolism
DX: E03.9 Hypothyroidism, unspecified (principal)
CPT/HCPCS: 36415; 84439; 84443

== ENCOUNTER 2021-12-26 14:44 | Outpatient (CLI) | payer OTHER, SELFPAY ==
[2021-12-26 15:08] LABS: Hematocrit 43.3 % (37.0-47.0); Hemoglobin 14.7 g/dL (12.0-15.0); Mean Corpuscular HGB Conc 33.9 g/dl (32-36); Mean Corpuscular Hemoglobin 28.7 pg (26-34); Mean Corpuscular Volume 84.4 fl (80-100); Mean Platelet Volume 9.5 fl (7.4-10.4); Platelet Count Result 260 k/mm3 (150-375); Red Blood Count 5.13 M/mm3 (4.2-5.4); Red Cell Distribution Width 13.2 % (11.5-14.5); White Blood Count 6.4 K/mm3 (4.5-10.0)
[2021-12-26 16:33] LABS: Free T4 Free Thyroxine 0.91 ng/mL (0.78-2.19)
== END 2021-12-26 14:45 | disposition home or self-care (01) ==
LOC: ANHLAB 14:47
PROVIDERS: PCP Family Medicine; Referring Provider Physician Assistant; Visit Provider Internal Medicine Endocrinology, Diabetes & Metabolism
DX: E03.9 Hypothyroidism, unspecified (principal); D64.9 Anemia, unspecified
CPT/HCPCS: 36415; 82728; 84439; 84443; 85027

== ENCOUNTER 2022-02-12 16:05 | Outpatient (CLI) | payer OTHER, SELFPAY ==
[2022-02-12 18:13] LABS: Free T4 Free Thyroxine 0.97 ng/mL (0.78-2.19)
== END 2022-02-12 16:06 | disposition home or self-care (01) ==
LOC: ANHLAB 16:06
PROVIDERS: PCP Family Medicine; Visit Provider Internal Medicine Endocrinology, Diabetes & Metabolism
DX: E03.9 Hypothyroidism, unspecified (principal)
CPT/HCPCS: 36415; 84439; 84443

== ENCOUNTER 2022-03-19 16:01 | Outpatient (CLI) | payer OTHER, SELFPAY ==
[2022-03-19 18:00] LABS: Vitamin D 25 Hydroxy 40.7 ng/mL
[2022-03-19 18:35] LABS: Alanine Aminotransferase 38 U/L (6-35); Albumin Level 4.8 g/dL (3.5-5.1); Alkaline Phosphatase 90 U/L (38-126); Anion Gap 7 mmol/L (8-16); Aspartate Amino Transferase 37 U/L (14-36); Bilirubin,Total 0.4 mg/dL (0.2-1.3); Blood Urea Nitrogen 16 mg/dL (7-17); Carbon Dioxide 31 mmol/L (22-30); Chloride 103 mmol/L (98-107); Estimated Glomerular Filt Rate > 60; Glucose 88 mg/dL (65-110); Potassium 3.9 mmol/L (3.4-5.0); Sodium 141 mmol/L (137-145)
[2022-03-19 18:50] LABS: Beta HCG Quantitative < 2.39 mIU/ML
[2022-03-19 18:56] LABS: Erythrocyte Sedimentation Rate 17 mm/hr (0-20)
== END 2022-03-19 16:02 | disposition home or self-care (01) ==
LOC: ANHLAB 16:03
PROVIDERS: PCP Family Medicine; Visit Provider Family Medicine
DX: N92.1 Excessive and frequent menstruation with irregular cycle (principal); E11.9 Type 2 diabetes mellitus without complications; M25.559 Pain in unspecified hip; E53.8 Deficiency of other specified B group vitamins; E55.9 Vitamin D deficiency, unspecified
CPT/HCPCS: 36415; 80053; 82306; 82607; 84702; 85652

== ENCOUNTER 2022-03-30 08:08 | Outpatient (CLI) | payer OTHER, SELFPAY ==
--- NOTE | ~2022-03-30 | MR_ITS ---
MRI of the left hip Clinical history: Pain Technique: Coronal T1-weighted, T2-weighted, and proton-density fat-sat images, and axial T1-weighted and proton-density fat-sat images were acquired through the pelvis. Coronal T2-weighted images and c oronal, axial, and sagittal proton-density fat-sat images were acquired through the left hip. Findings: There is no fracture, avascular necrosis, or transient osteoporosis of either hip. Bone mar row signals of the proximal femora and visualized pelvic bones are unremarkable. Bilateral hip and SI joint spaces are preserved. No significant joint effusion identified. No left acetabular labral tear identified. Visualized musculature about the pelvis and left hip is unremarkable. No muscle atrophy or edema iden tified. Visualized tendons are intact. No soft tissue mass or fluid collection evident. IMPRESSION: No significant abnormality identified. Reviewed, dictated and finalized at [facility]. E KNOCKER
== END 2022-03-30 08:09 | disposition home or self-care (01) ==
PROVIDERS: PCP Family Medicine; Visit Provider Family Medicine
DX: M25.552 Pain in left hip (principal)
CPT/HCPCS: 73721

== ENCOUNTER 2022-03-31 08:03 | Outpatient (CLI) | payer OTHER, SELFPAY ==
--- NOTE | ~2022-03-31 | XR_ITS ---
AP view of the pelvis and AP and lateral views of the left hip Clinical history: Pain Findings: No acute fracture or dislocation is seen. Osseous alignment is anatomic. Bilateral hip and SI joint spaces are preserved. Soft tissues are unremarkable. Impression: No significant abnormality is seen. Reviewed, dictated and finalized at [facility]. NG OR REGISTRY CLERK Impression: No significant abnormality is seen.
== END 2022-03-31 08:04 | disposition home or self-care (01) ==
PROVIDERS: PCP Family Medicine; Visit Provider Family Medicine
DX: M25.552 Pain in left hip (principal)
CPT/HCPCS: 73502

== ENCOUNTER 2022-04-29 15:09 | Outpatient (CLI) | payer OTHER, SELFPAY ==
[2022-04-29 16:48] LABS: Iron 39 ug/dL (37-170)
[2022-04-29 16:58] LABS: Percent Iron Saturation 14 % (20-50)
[2022-04-29 17:06] LABS: Free T4 Free Thyroxine 1.11 ng/mL (0.78-2.19)
== END 2022-04-29 15:10 | disposition home or self-care (01) ==
LOC: ANHLAB 15:10
PROVIDERS: PCP Family Medicine; Visit Provider Internal Medicine Endocrinology, Diabetes & Metabolism
DX: E03.9 Hypothyroidism, unspecified (principal); E61.1 Iron deficiency
CPT/HCPCS: 36415; 82728; 83540; 83550; 84439; 84443

== ENCOUNTER 2022-05-03 11:40 | Emergency (ER) | payer OTHER, SELFPAY ==
[2022-05-03 11:43] VITALS: BP 109/71; PULSE 93; RESP 18; TEMP 36.6; O2SAT 100
[2022-05-03 12:20] LABS: Basophils Absolute Auto 0.1 K/mm3 (0.0-0.1); Basophils Percent Auto 0.7 % (0.2-1.2); Eosinophils Absolute Auto 0.3 K/mm3 (0-0.3); Eosinophils Percent Auto 4.1 % (0-4.4); Hematocrit 40.6 % (37.0-47.0); Hemoglobin 13.5 g/dL (12.0-15.0); Immature Granulocyte Absolute 0.03 K/mm3 (0.00-0.031); Immature Granulocyte Percent A 0.4 % (0-0.5); Lymphocytes Absolute Auto 1.39 K/mm3 (0.9-3.2); Lymphocytes Percent Auto 18.4 % (18.3-44.2); Mean Corpuscular HGB Conc 33.3 g/dl (32-36); Mean Corpuscular Hemoglobin 28.5 pg (26-34); Mean Corpuscular Volume 85.7 fl (80-100); Mean Platelet Volume 9.5 fl (7.4-10.4); Monocytes Absolute Auto 0.7 K/mm3 (0.1-0.6); Monocytes Percent Auto 9.3 % (2.6-8.5); Neutrophils Absolute Auto 5.1 K/mm3 (1.3-6.7); Neutrophils Percent Auto 67.1 % (45.5-73.1); Platelet Count Result 242 k/mm3 (150-375); Red Blood Count 4.74 M/mm3 (4.2-5.4); White Blood Count 7.6 K/mm3 (4.5-10.0)
[2022-05-03 12:23] LABS: Appearance Urine Clear (Clear); Bilirubin Urine Negative (Negative); Blood Urine Negative (Negative); Color Urine Yellow (Yellow); Glucose Urine UA Negative (Negative); Ketones Urine Negative (Negative); Leukocyte Esterase Ur Negative LEU/UL (Negative); Nitrate Urine Negative (Negative); Protein Urine Negative (Negative); Specific Grav Ur 1.012 (1.001-1.035); Urobilinogen Urine 0.2 mg/dL (<2.0)
[2022-05-03 12:29] LABS: Add Urine Microscopic? NO
[2022-05-03 12:33] LABS: Alanine Aminotransferase 57 U/L (6-35); Albumin Level 4.4 g/dL (3.5-5.1); Alkaline Phosphatase 109 U/L (38-126); Anion Gap 7 mmol/L (8-16); Aspartate Amino Transferase 49 U/L (14-36); Bilirubin,Total 0.6 mg/dL (0.2-1.3); Blood Urea Nitrogen 17 mg/dL (7-17); Calcium 8.6 mg/dL (8.4-10.2); Carbon Dioxide 29 mmol/L (22-30); Chloride 104 mmol/L (98-107); Creatine Kinase 117 U/L (30-135); Estimated CRCL calculation 82 ml/min; Estimated Glomerular Filt Rate > 60; Glucose 71 mg/dL (65-110); Potassium 4.1 mmol/L (3.4-5.0); Sodium 140 mmol/L (137-145)
[2022-05-03 13:52] VITALS: BP 107/64; PULSE 84; RESP 16; TEMP 36.6; O2SAT 98
[2022-05-03 14:58] LABS: Pregnancy On Board Control Positive; Urine Pregnancy Test Negative
--- NOTE | 2022-05-03 15:06 | ED.RECABL ---
HPI - Recheck/Abnormal Lab/Rx General Chief Complaint: Recheck/Abnormal Lab/Rx Stated Complaint: might have rhabdo. low iron Time Seen by Provider: 05/03/22 14:48 Source: patient Mode of arrival: ambulatory Limitations: no limitations History of Present Illness HPI narrative: 31 years old white female came to the emergency room with the idea that she and rhabdo. Patient complaining of intermittent headache, fatigue, unable to run 10 miles marathon as usual, since November 2021. Been managed by her family physician and to have a diagnosis of hypothyroidism and iron deficiency anemia. Currently patient is asymptomatic. Denied any muscle pain or swelling of the muscle or any trauma. Patient had iron level and TSH levels last week. Related Data Home Medications Medication Instructions Recorded Confirmed loratadine 10 mg tablet (Claritin) 10 mg PO DAILY 04/06/19 04/28/22 fluticasone propionate 50 1 spray intranasal DAILY PRN 04/16/20 04/28/22 mcg/actuation nasal allergies spray,suspension ferrous sulfate 325 mg (65 mg 325 mg PO DAILY 02/16/22 04/28/22 iron) tablet (Feosol) Allergies Allergy/AdvReac Type Severity Reaction Status Date / Time Penicillins Allergy Intermediate Hives Verified 05/03/22 11:43 Review of Systems Review of Systems: All systems reviewed & are unremarkable except as noted in HPI and below PMFSH Past Medical History Medical History Acid reflux Encounter for supervision of normal first in second trimester History of broken nose Hypothyroidism Overweight Vaginal delivery Surgical History Surgical History [place] teeth removed Family History Family History Father Family history of hypercholesterolemia Hypertension Cerebrovascular accident, Onset Age: 40 Hypothyroidism Heart disease Acute myocardial infarction Mother Depression Family history of hypercholesterolemia Hypertension Sibling Asthma Grandparent Family history of cardiovascular disease Social History Social History Smoking status: Never smoker Second hand tobacco smoke exposure: No Alcohol intake: current Drinks per week: 3 Substance use: never Substance use type: does not use Lack of Transportation: No Lack of Food: Never True Current Housing: I Have Housing Concerned About Future Housing: No Difficulty Paying Gas/Electric Bills: No Difficulty Paying for Meds: No Currently Unemployed: No Education: Master's Degree or Higher Difficulty w/ Childcare or Family Care: No Gender identity (if verbalized by the patient): Female Sexual Orientation (if Verbalized by the Patient): Straight or Heterosexual Spiritual care concerns: No Agree to blood products: Yes Exam Narrative: General appearance: Well-developed, well-nourished Skin: Normal color Head: Normocephalic, nontraumatic Eyes: Clear conjunctiva ENT: Oropharynx normal, ears normal, nose normal Neck: Supple, nontender Chest and respiratory: Airway patent, no respiratory distress, no accessory muscle use Heart: Regular rate/rhythm Abdomen: Soft, nontender, no organomegaly, quiet bowel sounds Vascular: Normal peripheral pulses, normal capillary refill. Musculoskeletal: Normal range of motion, nontender back Neurologic: Alert and oriented ?3, CONTROL ANALYST is normal as tested, no gross motor deficit Course Reevaluation(s) Reevaluation #1: Patient still asymptomatic, ready to go home Date: 05/03/22 Time: 15:26 Vital Signs Vital
[2022-05-03 15:42] VITALS: BP 104/70; PULSE 79; RESP 16; O2SAT 100
== END 2022-05-03 15:43 | disposition home or self-care (01) ==
PROVIDERS: Emergency Provider Emergency Medicine; PCP Family Medicine
DX: R53.83 Other fatigue (principal); K21.9 Gastro-esophageal reflux disease without esophagitis; E03.9 Hypothyroidism, unspecified; E66.3 Overweight; Z68.25 Body mass index [BMI] 25.0-25.9, adult; D50.9 Iron deficiency anemia, unspecified
CPT/HCPCS: 36415; 80053; 81003; 81025; 82550; 84443; 85025; 99281; 99283

== ENCOUNTER 2022-05-07 15:46 | Outpatient (CLI) | payer OTHER, SELFPAY ==
[2022-05-07 16:20] LABS: Alanine Aminotransferase 50 U/L (6-35); Alkaline Phosphatase 94 U/L (38-126); Aspartate Amino Transferase 40 U/L (14-36); Bilirubin,Total 0.6 mg/dL (0.2-1.3)
[2022-05-07 17:19] LABS: Hepatitis B Surface Antigen Negative (Negative)
[2022-05-07 17:26] LABS: HAV RESULT Negative (Negative); Hepatitis B Core IgM Result Negative (Negative)
[2022-05-07 17:37] LABS: Hepatitis C Virus Antibody Negative (Negative)
[2022-05-10 10:31] LABS: LKM 1 Antibody <=20.0 U (<=20.0)
[2022-05-10 14:42] LABS: Ceruloplasmin 34 mg/dL (18-53)
[2022-05-10 19:49] LABS: GGT 17 U/L (3-40)
[2022-05-12 10:45] LABS: Actin Antibody (IgG) <20 U (<20)
[2022-05-12 23:23] LABS: ALT 36 U/L (6-29); Alpha-2-Macroglobulin 211 mg/dL (106-279); Apolipoprotein A1 187 mg/dL (101-198); Fibrosis Score 0.06; Fibrosis Stage F0; GGT 17 U/L (3-40); Haptoglobin 147 mg/dL (43-212); Necroinflammat Act Grade A0; Total Bilirubin 0.5 mg/dL (0.2-1.2)
[2022-05-13 13:02] LABS: Gliadin AB, IgG <1.0 U/mL (<15.0); TTG IGA AB <1.0 U/mL (<15.0)
[2022-05-13 15:41] LABS: Alpha Fetoprotein Tumor Marker 4.6 ng/mL (<6.1)
[2022-05-14 05:40] LABS: Anti Nuclear Antibody Titer >=1:1280 (Negative)
== END 2022-05-07 15:47 | disposition home or self-care (01) ==
PROVIDERS: PCP Family Medicine; Visit Provider Nurse Practitioner
DX: R79.89 Other specified abnormal findings of blood chemistry (principal); R53.82 Chronic fatigue, unspecified; E61.1 Iron deficiency; K74.60 Unspecified cirrhosis of liver
CPT/HCPCS: 36415; 80074; 80076; 81596; 82105; 82390; 82977; 86038; 86039; 86255; 86364; 86376

== ENCOUNTER 2022-05-28 14:30 | Outpatient (RCR) | payer OTHER, SELFPAY ==
--- NOTE | 2022-04-30 15:24 | PTOPEVAL1 ---
Assessment and note entered by Janiya Stephens DPT Evaluation Information Assessment Status Evaluation Subjective Information Pt reports L hip pain, originally started 2 years ago while training for a half marathon and felt a pop in her hip while biking. Pain has been worsening over the 2 years. It is always anterior. Pain feels sharp at times, will occur with walking even short distances and running, or with flexion activities like lifting leg toward her trunk like to put pants on. Highest pain in last month 10/10 and lowest 0/10. States her hips click all the time . Reports had x-rays and MRI's done which were negative. Previously was able to exercise and do other activities without hip pain. Reported Pain Level Pain Score 0: Self Report Assessment PT Clinical Summary The patient is presenting to skilled therapy with a history of progressing left hip pain. She presents with decreased hip strength and flexibility which are contributing to her pain and difficulty with activities such as running and walking. She will highly benefit from therapy to address these impairments and safely return to [facility]. Plan of Care Interventions Electrical Stimulation,Gait Training,Hot Pack/Cold Pack,Manual Therapy,Neuro Re-education,Patient/ Caregiver Education,Therapeutic Activities, Therapeutic Exercise,Self-Care/Home Management PT Services Indicated Yes Treatment Frequency and 1-2 times a week for 4 weeks Duration These treatments will address the objective and functional deficits as defined above. The patient will be advanced safely and appropriately in order for the patient to progress towards his/her prior level of function. Additional exercises will be introduced and as well as a comprehensive home exercise program upon discharge, if needed, ?to ensure carryover of functional gains achieved in the clinic. This treatment plan has been reviewed and agreement upon by the patient.
--- NOTE | 2022-05-28 15:01 | PTOPDC ---
Assessment and note entered by Janiya Stephens DPT Evaluation Information Assessment Status Discharge Subjective Information Highest pain in last week 02/17. Was able to run 13 miles over the weekend, was sore after but nothing like it had been. Pt feels confident with discharge this visit and will continue to do HEP. Reported Pain Level Pain Score 0: Self Report Assessment PT Clinical Summary The patient has made excellent progress in therapy . She reports pain of 1/10 highest in last week and no functional limitations. She was able to run 13 miles over the weekend with only soreness after. Due to her progress, plan to discharge to [facility] this date. Plan of Care PT Services Indicated No
== END 2022-06-18 10:19 | disposition home or self-care (01) ==
LOC: ANHPT 14:30
PROVIDERS: PCP Family Medicine; Visit Provider Physician Assistant Surgical
DX: M25.552 Pain in left hip (principal)
CPT/HCPCS: 97110; 97112; 97161; 97530

== ENCOUNTER 2022-06-04 09:15 | Outpatient (CLI) | payer OTHER, SELFPAY ==
--- NOTE | ~2022-06-04 | US_ITS ---
Abdominal Sonogram: Real-time sonographic imaging of the abdomen was performed. Clinical History: Chronic fatigue Findings: The liver appears normal with no evidence of mass lesion or bile duct dilatation. Main por latha vein demonstrates normal direction of flow. The spleen is normal in size without evidence of foca l lesion. The gallbladder is well distended, and appears normal with no evidence of gallstone or wal l thickening. The common bile duct measures 3 mm. The visualized pancreas, aorta, and IVC are unrema rkable. The right kidney measures 11.4 cm in length and the left kidney measures 12.0 cm. There is no hydronephrosis or renal calculus. Impression: Unremarkable abdominal ultrasound. Reviewed, dictated and finalized at location . Impression: Unremarkable abdominal ultrasound.
== END 2022-06-04 09:16 | disposition home or self-care (01) ==
LOC: ANHIMG 09:18
PROVIDERS: PCP Family Medicine; Visit Provider Nurse Practitioner
DX: R53.82 Chronic fatigue, unspecified (principal); E61.1 Iron deficiency; R79.89 Other specified abnormal findings of blood chemistry
CPT/HCPCS: 76700

== ENCOUNTER 2022-06-12 16:57 | Outpatient (CLI) | payer OTHER, SELFPAY ==
[2022-06-12 18:28] LABS: Creatine Kinase 110 U/L (30-135)
[2022-06-12 18:36] LABS: Immunoglobulin G 1448 mg/dL (700-1600); Immunoglobulin M 85 mg/dL (40-230)
[2022-06-21 12:17] LABS: TPMT Activity 15
== END 2022-06-12 16:58 | disposition home or self-care (01) ==
PROVIDERS: PCP Family Medicine; Visit Provider Internal Medicine Gastroenterology
DX: R79.89 Other specified abnormal findings of blood chemistry (principal); R76.8 Other specified abnormal immunological findings in serum
CPT/HCPCS: 36415; 82550; 82657; 82784

== ENCOUNTER 2022-06-19 01:02 | Day surgery (SDC) | payer OTHER, SELFPAY ==
[2022-06-15 12:22] VITALS: BMI 24.5
[2022-06-19 13:03] VITALS: BP 107/68; PULSE 79; RESP 18; TEMP 36.2; O2SAT 100; BMI 23.9
[2022-06-19] MEDS: LACTATED RINGERS 1,000 ML 150 ML IV CONT (13:03)
--- NOTE | 2022-06-19 13:05 | WPDANESEPPF ---
Anes - Initial Pre Proc Eval Procedure: Operation Date: 06/19/22 14:30 Proposed Procedures p Colonoscopy - Woody Fox MD Date/Time: 06/19/22 13:05 Surgeon: Woody Fox MD Pre Op Diagnosis: diarrhea Patient Data Age: 32 Gender: F Height: 1.73 m Weight: 73 kg Allergies Allergy/AdvReac Type Severity Reaction Status Date / Time Penicillins Allergy Intermediate Hives Verified 06/19/22 12:50 Home Medications Medication Instructions Recorded Confirmed Type loratadine 10 mg tablet (Claritin) 10 mg PO DAILY 04/06/19 06/19/22 History fluticasone propionate 50 1 spray intranasal DAILY PRN 04/16/20 06/19/22 History mcg/actuation nasal allergies spray,suspension vit no.95-ferrous See Rx Instructions .Route 06/17/21 06/19/22 Rx fumarate 28 mg-folic acid 800 mcg .COMPLEX #90 tabs tablet () hydrocortisone-pramoxine 2.5 %-1 % 1 applic RECTAL QID PRN 08/07/21 06/19/22 Rx rectal cream (Analpram-HC) hemorrhoids #30 grams ferrous sulfate 325 mg (65 mg 325 mg PO DAILY 02/16/22 06/19/22 History iron) tablet (Feosol) levothyroxine 125 mcg tablet See Rx Instructions .Route 05/25/22 06/19/22 Rx .COMPLEX #90 tabs Patient hx anesthesia problems: none Family hx anesthesia problems: none Results Review: All pre-operative results and documents have been reviewed as part of the pre-operative evaluation. [facility] Past Medical History Medical History (Updated 06/11/22 @ 16:26 by Woody Fox MD) Acid reflux Chronic fatigue Diarrhea Elevated antinuclear antibody (EVERETTE) level Elevated LFTs Encounter for supervision of normal first in second trimester History of broken nose Hypothyroidism Iron deficiency Overweight Vaginal delivery Surgical History Surgical History [place] teeth removed Family History Family History Father Family history of hypercholesterolemia Hypertension Cerebrovascular accident, Onset Age: 40 Hypothyroidism Heart disease Acute myocardial infarction Mother Depression Family history of hypercholesterolemia Hypertension Sibling Asthma Grandparent Family history of cardiovascular disease Social History Social History Smoking status: Never smoker Second hand tobacco smoke exposure: No Alcohol intake: current Drinks per week: 3 Alcohol use details: socially Substance use: never Substance use type: does not use Lack of Transportation: No Lack of Food: Never True Current Housing: I Have Housing Concerned About Future Housing: No Difficulty Paying Gas/Electric Bills: No Difficulty Paying for Meds: No Currently Unemployed: No Education: Master's Degree or Higher Difficulty w/ Childcare or Family Care: No Living arrangements: with family Gender identity (if verbalized by the patient): Female Sexual Orientation (if Verbalized by the Patient): Straight or Heterosexual Spiritual care concerns: No Agree to blood products: Yes Anes - Eval Final PreProcedure Day of Procedure 06/19/22 13:05 Patient weight: normal Heart: regular rate and rhythm Lungs: clear to auscultation and normal air movement Airway: Mallampati scale class II Neurological: alert and oriented Last oral intake: >/= 8 hours ASA classification: II Emergent: no Anesthetic plan: proceed Anesthesia type and monitoring: general GIVS Results Review: All pre-operative results and documents have been reviewed as part of the pre-operative evaluation. Informed Consent: The patient's anesthetic plan and its attendant risks and benefits were discussed with the patient/family/POA. Questions were solicited and answers provided to the satisfaction of the patient/family/POA.
--- NOTE | 2022-06-19 13:10 | WPDHPUPDATE1 ---
History and Physical Update Update Date/Time: 06/19/22 13:10 History and Physical has been reviewed, including an updated exam of the patient. There are NO changes in the patient's condition. Risks, benefits, and alternatives have been discussed and questions answered. Patient agrees to proceed with procedure.
[2022-06-19 13:31] VITALS: BP 109/64; PULSE 73; RESP 14; O2SAT 100
[2022-06-19 13:41] VITALS: BP 111/70; PULSE 69; RESP 12; O2SAT 100
[2022-06-19 13:51] VITALS: BP 101/74; PULSE 55; RESP 18; O2SAT 100
== END 2022-06-19 14:06 | disposition home or self-care (01) ==
PROVIDERS: PCP Family Medicine; Visit Provider Internal Medicine Gastroenterology
PROC: 0DJD8ZZ Inspection of Lower Intestinal Tract, Via Natural or Artificial Opening Endoscopic (ICD-10-PCS; CPT 45378; principal; 2022-06-19 14:30)
DX: K52.832 Lymphocytic colitis (principal); D12.0 Benign neoplasm of cecum; K64.8 Other hemorrhoids; E61.1 Iron deficiency; E03.9 Hypothyroidism, unspecified
CPT/HCPCS: 45380; 45385; 88305; J2704; J7120

== ENCOUNTER 2022-06-22 08:17 | Outpatient (CLI) | payer OTHER, SELFPAY ==
[2022-06-17 11:09] VITALS: BMI 24.3
--- NOTE | 2022-06-17 11:09 | PC.NURSE ---
Pre Radiology instructions Report to the [facility] on date 06/22/22 at time 0830 for procedure Time: 1030. YOU MAY BE MONITORED AT HOSPITAL FOR UP TO 4 HOURS AFTER YOUR PROCEDURE. A visitor will be allowed to accompany the patient into the hospital. You and your visitor will be asked to self-screen and do not enter if you have any COVID symptoms. A mask is OPTIONAL within the hospital. Patients are to have no food or drink 6 hours prior to procedure time Driving will be restricted after the procedure, you must have a person to drive you home. Labs will be drawn in preop area and once reviewed, you will be taken to radiology area for procedure. When the procedure is completed, you will be taken to outpatient where you will be monitored for several hours. You may have one visitor in this area. Other than holding anti-coagulants, patient may take other medication(s) as scheduled. Prior to your appointment date patients are instructed to hold anti-coagulants after discussing with ordering provider to stop. If unable to discontinue anti-coagulants please notify radiologist. ? No aspirin or warfarin (Coumadin) for 7 days prior to the procedure. ? No clopidogrel (Plavix), ticagrelor (Brilinta), prasugrel (Effient) or dabigatran (Pradaxa) for 5 days prior to the procedure. ? No rivaroxaban (Xarelto), apixaban (Eliquis), dipyridamole (Aggrenox or Persantine) or cilostazol (Pletal) for 2 days prior to the procedure. Medications to discontinue per physician: N/A Date to take last dose: N/A Please leave all valuables, including medications, at home the day of procedure. The hospital will not accept responsibility for valuables. Wear comfortable, loose fitting clothing.? Follow any additional instructions given to you from ordering provider. Telephone instructions given to MARINO RIOS and asked if any additional questions and then verbalized understanding. Patient advised to call scheduling provider office or registration scheduling [phone] if any additional questions.
[2022-06-22] VITALS (12 sets, daily range): BP systolic 92–127; BP diastolic 54–78; PULSE 52–88; RESP 15–16; TEMP 36.4; O2SAT 99–100
--- NOTE | ~2022-06-22 | US_ITS ---
EXAMINATION: US biopsy liver DATE: 06/22/2022 10:56 INDICATION: Other specified abnormal findings of blood chemistry. Abnormal liver function tests. TECHNIQUE: The procedure including the risks, benefits, and alternatives was discussed with the patie nt. Risks discussed included bleeding and infection. The patient understood the risks and agreed to p roceed. The skin overlying the liver was prepped and draped in usual sterile fashion. Anesthetic was administered with 1% lidocaine subcutaneously. An 18 gauge core biopsy needle was then used to obta in 3 core biopsy specimens under continuous sonographic guidance. The entry site was cleaned and dres sed. There were no immediate complications. FINDINGS: Ultrasound images demonstrate the needle in left hepatic lobe. IMPRESSION: 1. Ultrasound-guided random core needle biopsy of the liver. Reviewed, dictated and finalized at location A.
[2022-06-22 08:51] LABS: Mean Platelet Volume 9.9 fl (7.4-10.4); Platelet Count Result 191 k/mm3 (150-375)
[2022-06-22 09:01] LABS: Prothrombin Time 14.1 Seconds (11.1-14.7)
[2022-06-22] MEDS: ACETAMINOPHEN 500 MG TABLET 1000 MG PO (11:56)
[2022-06-22] MEDS: LACTATED RINGERS 1,000 ML 30 ML IV CONT (11:56)
== END 2022-06-22 14:46 | disposition home or self-care (01) ==
PROVIDERS: Radiology Diagnostic Radiology; PCP Family Medicine; Visit Provider Internal Medicine Gastroenterology
PROC: BF45ZZZ Ultrasonography of Liver (ICD-10-PCS; CPT 47000; principal; 2022-06-22 10:30)
DX: R79.89 Other specified abnormal findings of blood chemistry (principal); R76.8 Other specified abnormal immunological findings in serum
CPT/HCPCS: 36415; 47000; 76942; 85049; 85610; 88307; 88312; 88313; A9270; J7120

== ENCOUNTER 2022-08-12 15:59 | Outpatient (CLI) | payer OTHER, SELFPAY ==
[2022-08-12 16:55] LABS: Rheumatoid Factor < 12.0 IU/ML (<12)
[2022-08-16 10:24] LABS: Anti Cyclic Citrullinated Pept <16 Units (<20)
== END 2022-08-12 16:00 | disposition home or self-care (01) ==
LOC: ANHLAB 16:01
PROVIDERS: PCP Family Medicine; Visit Provider Internal Medicine
DX: K74.00 Hepatic fibrosis, unspecified (principal); R76.8 Other specified abnormal immunological findings in serum; R74.01 Elevation of levels of liver transaminase levels; M19.90 Unspecified osteoarthritis, unspecified site
CPT/HCPCS: 36415; 82085; 86200; 86430

== ENCOUNTER 2022-08-26 12:46 | Outpatient (CLI) | payer OTHER, SELFPAY ==
[2022-08-26 14:12] LABS: Free T4 Free Thyroxine 1.38 ng/mL (0.78-2.19)
== END 2022-08-26 12:47 | disposition home or self-care (01) ==
PROVIDERS: PCP Family Medicine; Visit Provider Internal Medicine Endocrinology, Diabetes & Metabolism
DX: E03.9 Hypothyroidism, unspecified (principal)
CPT/HCPCS: 36415; 84439; 84443

== ENCOUNTER 2022-09-15 16:12 | Outpatient (CLI) | payer OTHER, SELFPAY ==
[2022-09-22 22:21] LABS: Calprotectin, Stool 24 mcg/g
[2022-09-23 18:51] LABS: Pancreatic Elastase, Stool >500 mcg/g
== END 2022-09-15 16:13 | disposition home or self-care (01) ==
PROVIDERS: PCP Family Medicine; Visit Provider Nurse Practitioner
DX: K52.832 Lymphocytic colitis (principal); R19.7 Diarrhea, unspecified; E61.1 Iron deficiency
CPT/HCPCS: 82653; 83993; 87045; 87177; 87209; 87269; 87427; 87449

== ENCOUNTER 2022-09-30 15:48 | Outpatient (CLI) | payer OTHER, SELFPAY ==
[2022-09-30 16:15] LABS: Hematocrit 46.7 % (37.0-47.0); Hemoglobin 15.3 g/dL (12.0-15.0); Mean Corpuscular HGB Conc 32.8 g/dl (32-36); Mean Corpuscular Hemoglobin 28.9 pg (26-34); Mean Corpuscular Volume 88.1 fl (80-100); Mean Platelet Volume 9.8 fl (7.4-10.4); Platelet Count Result 284 k/mm3 (150-375); Red Cell Distribution Width 13.3 % (11.5-14.5); White Blood Count 8.9 K/mm3 (4.5-10.0)
[2022-09-30 16:25] LABS: Alanine Aminotransferase 37 U/L (6-35); Albumin Level 5.2 g/dL (3.5-5.1); Alkaline Phosphatase 65 U/L (38-126); Aspartate Amino Transferase 36 U/L (14-36)
[2022-09-30 16:26] LABS: Anion Gap 10 mmol/L (8-16); Blood Urea Nitrogen 18 mg/dL (7-17); Calcium 9.3 mg/dL (8.4-10.2); Carbon Dioxide 28 mmol/L (22-30); Chloride 100 mmol/L (98-107); Cholesterol 160 mg/dL (0-200); Estimated Glomerular Filt Rate 58; Glucose 78 mg/dL (65-110); HDL Direct 68 mg/dL; Potassium 4.2 mmol/L (3.4-5.0); Sodium 138 mmol/L (137-145); Triglycerides 96 mg/dL (<150)
[2022-09-30 16:37] LABS: LDL Cholesterol Direct 70 mg/dL
[2022-09-30 16:49] LABS: Iron 76 ug/dL (37-170)
[2022-09-30 16:59] LABS: Percent Iron Saturation 24 % (20-50)
== END 2022-09-30 15:49 | disposition home or self-care (01) ==
PROVIDERS: PCP Family Medicine; Referring Provider Physician Assistant; Visit Provider Nurse Practitioner
DX: Z00.00 Encounter for general adult medical examination without abnormal findings (principal); Z13.220 Encounter for screening for lipoid disorders; R79.89 Other specified abnormal findings of blood chemistry; E61.1 Iron deficiency
CPT/HCPCS: 36415; 80048; 80061; 80076; 82728; 83540; 83550; 85027

== ENCOUNTER 2022-12-08 15:40 | Outpatient (CLI) | payer OTHER, SELFPAY ==
[2022-12-08 17:32] LABS: Free T4 Free Thyroxine 1.09 ng/mL (0.78-2.19)
[2022-12-11 06:06] LABS: Triiodothyronine T3 Free 2.3 pg/mL (2.3-4.2)
== END 2022-12-08 15:41 | disposition home or self-care (01) ==
PROVIDERS: PCP Family Medicine; Visit Provider Internal Medicine Endocrinology, Diabetes & Metabolism
DX: E04.9 Nontoxic goiter, unspecified (principal); E03.9 Hypothyroidism, unspecified
CPT/HCPCS: 36415; 84439; 84443; 84481

== ENCOUNTER 2023-01-18 16:21 | Outpatient (CLI) | payer OTHER, SELFPAY ==
[2023-01-18 18:50] LABS: Free T4 Free Thyroxine 1.53 ng/mL (0.78-2.19)
== END 2023-01-18 16:22 | disposition home or self-care (01) ==
PROVIDERS: PCP Family Medicine; Visit Provider Internal Medicine Endocrinology, Diabetes & Metabolism
DX: E03.9 Hypothyroidism, unspecified (principal)
CPT/HCPCS: 36415; 84439; 84443

== ENCOUNTER 2023-02-18 15:51 | Outpatient (CLI) | payer OTHER, SELFPAY ==
[2023-02-18 17:31] LABS: Alanine Aminotransferase 25 U/L (6-35); Albumin Level 4.5 g/dL (3.5-5.1); Alkaline Phosphatase 60 U/L (38-126); Anion Gap 8 mmol/L (8-16); Aspartate Amino Transferase 32 U/L (14-36); Bilirubin,Total 0.6 mg/dL (0.2-1.3); Blood Urea Nitrogen 13 mg/dL (7-17); Calcium 9.1 mg/dL (8.4-10.2); Carbon Dioxide 28 mmol/L (22-30); Chloride 104 mmol/L (98-107); Estimated Glomerular Filt Rate > 60; Glucose 75 mg/dL (65-110); Potassium 3.8 mmol/L (3.4-5.0); Sodium 140 mmol/L (137-145)
[2023-02-18 18:01] LABS: Immunoglobulin A 170 mg/dL (70-400); Immunoglobulin G 1571 mg/dL (700-1600); Immunoglobulin M 83 mg/dL (40-230)
[2023-02-26 13:54] LABS: Tissue Transglutaminase IgA Ab <1.0 U/mL (<15.0)
== END 2023-02-18 15:52 | disposition home or self-care (01) ==
PROVIDERS: PCP Family Medicine
DX: R74.8 Abnormal levels of other serum enzymes (principal)
CPT/HCPCS: 36415; 80053; 82784; 86364

== ENCOUNTER 2023-02-20 09:17 | Emergency (ER) | payer OTHER, SELFPAY ==
--- NOTE | ~2023-02-20 | XR_ITS ---
EXAMINATION: XR foot RT min 3V DATE: 02/20/2023 09:51 INDICATION: Right foot pain TECHNIQUE: Dorsoplantar, lateral, and 2 oblique views of the right foot were obtained. COMPARISON: None. FINDINGS: Bone alignment is normal. No acute fracture is identified. There is subtle heterotopic ossi fication projecting dorsal to the proximal aspect of the navicular bone on the lateral view which cou ld reflect prior injury. The soft tissues are unremarkable. IMPRESSION: 1. No acute osseous abnormality. Reviewed, dictated and finalized at location F. OR LINUX UNIX ADMINISTRATOR
--- NOTE | 2023-02-20 09:19 | ED.GENADULT ---
HPI - General Adult General Chief complaint: Extremity Injury, Lower Stated complaint: Right Foot Injury Time Seen by Provider: 02/20/23 09:19 Source: patient Mode of arrival: ambulatory Limitations: no limitations History of Present Illness HPI narrative: 32-year-old female patient presents to the [facility] with complaints of right foot pain. Patient states she was at the gym this morning doing her work out and her foot got caught in exercise bike pedal. Patient states she felt a pop and immediately had some pain. Patient states typically when she gets injured she tends to pass out so the 1st thing she did was laid down in anticipation for passing out but she did not pass out. Patient states that they did put ice on it immediately after the injury. Denies taking any oral medication for pain. Patient states she came straight here after the gym to have it checked out. Denies any numbness or tingling. Patient states she was able to walk on the foot but is painful. Related Data Home Medications Medication Instructions Recorded Confirmed loratadine 10 mg tablet (Claritin) 10 mg PO DAILY 04/06/19 02/20/23 fluticasone propionate 50 1 spray intranasal DAILY PRN 04/16/20 02/20/23 mcg/actuation nasal allergies spray,suspension ferrous sulfate 325 mg (65 mg 325 mg PO DAILY 02/16/22 02/20/23 iron) tablet (Feosol) magnesium oxide 200 mg PO BID 12/08/22 02/20/23 pyridoxine (vitamin B6) 50 mg 25 mg PO DAILY 12/08/22 02/20/23 tablet Allergies Allergy/AdvReac Type Severity Reaction Status Date / Time Penicillins AdvReac Mild Hives Verified 02/20/23 09:18 Review of Systems Review of Systems: CONSTITUTIONAL: Denies fever, chills, or sweats. EYES: Denies visual changes, redness, or discharge. ENT: Denies rhinorrhea, congestion, sore throat, or otalgia. CARDIOVASCULAR: Denies chest pain, palpitations, or edema. RESPIRATORY: Denies cough or dyspnea. GASTROINTESTINAL: Denies abdominal pain, nausea, vomiting, or diarrhea. GENITOURINARY: Denies dysuria or hematuria. SKIN: Denies rash or itching. MUSCULOSKELETAL: Denies back pain, joint pain, or myalgia. positive right foot pain NEUROLOGIC: Denies headache, numbness, or weakness. PSYCHIATRIC: Denies anxiety or depression. [facility] Past Medical History Medical History Acid reflux EVERETTE positive Chronic fatigue Diarrhea Elevated antinuclear antibody (EVERETTE) level Elevated LFTs Encounter for supervision of normal first in second trimester Fibrosis of liver History of broken nose Hx of adenomatous colonic polyps Hypothyroidism Iron deficiency Lymphocytic colitis Overweight Transaminitis Vaginal delivery Surgical History Surgical History S/P nasal surgery Poulan teeth removed Family History Family History Father Family history of hypercholesterolemia Hypertension Cerebrovascular accident, Onset Age: 40 Hypothyroidism Heart disease Acute myocardial infarction Mother Depression Family history of hypercholesterolemia Hypertension Diabetes mellitus Sibling Asthma Grandparent Family history of cardiovascular disease Social History Social History Smoking status: Never smoker Second hand tobacco smoke exposure: No Alcohol intake: current Drinks per week: 3 Alcohol use details: socially Substance use: never Substance use type: does not use Lack of Transportation: No Lack of Food: Never True Current Housing: I Have Housing Concerned About Future Housing: No Difficulty Paying Gas/Electric Bills: No Difficulty Paying for Meds: No Currently Unemployed: No Education: Master's Degree or Higher Difficulty w/ Childcare or Family Care: No Living arrangements: with family Gender identity (if verba
[2023-02-20 09:29] VITALS: BP 117/64; PULSE 90; RESP 16; TEMP 36.3; O2SAT 100
== END 2023-02-20 10:07 | disposition home or self-care (01) ==
PROVIDERS: Emergency Provider Nurse Practitioner Family; PCP Family Medicine
DX: S93.601A Unspecified sprain of right foot, initial encounter (principal); X58.XXXA Exposure to other specified factors, initial encounter; K21.9 Gastro-esophageal reflux disease without esophagitis; E03.9 Hypothyroidism, unspecified; D50.9 Iron deficiency anemia, unspecified
CPT/HCPCS: 73630; 99213; G0463

== ENCOUNTER 2023-03-15 15:48 | Outpatient (CLI) | payer OTHER, SELFPAY ==
[2023-03-15 16:16] LABS: Alanine Aminotransferase 32 U/L (6-35); Albumin Level 4.5 g/dL (3.5-5.1); Alkaline Phosphatase 64 U/L (38-126); Anion Gap 7 mmol/L (8-16); Aspartate Amino Transferase 34 U/L (14-36); Bilirubin,Total 0.7 mg/dL (0.2-1.3); Blood Urea Nitrogen 15 mg/dL (7-17); Calcium 9.6 mg/dL (8.4-10.2); Carbon Dioxide 29 mmol/L (22-30); Chloride 102 mmol/L (98-107); Estimated Glomerular Filt Rate > 60; Glucose 111 mg/dL (65-110); Potassium 3.7 mmol/L (3.4-5.0); Sodium 138 mmol/L (137-145)
== END 2023-03-15 15:49 | disposition home or self-care (01) ==
PROVIDERS: PCP Family Medicine
DX: R74.8 Abnormal levels of other serum enzymes (principal)
CPT/HCPCS: 36415; 80053

== ENCOUNTER 2023-05-13 15:57 | Outpatient (CLI) | payer OTHER, SELFPAY ==
[2023-05-13 18:38] LABS: Thyroid Stimulating Hormone 0.836 uIU/mL (0.465-4.680)
[2023-05-13 19:23] LABS: Free T4 Free Thyroxine 1.38 ng/mL (0.78-2.19)
== END 2023-05-13 15:58 | disposition home or self-care (01) ==
LOC: ANHLAB 16:00
PROVIDERS: PCP Family Medicine; Visit Provider Internal Medicine Endocrinology, Diabetes & Metabolism
DX: E03.9 Hypothyroidism, unspecified (principal)
CPT/HCPCS: 36415; 84439; 84443

== ENCOUNTER 2023-05-13 16:01 | Outpatient (CLI) | payer OTHER, SELFPAY ==
[2023-05-13 18:07] LABS: Alanine Aminotransferase 34 U/L (6-35); Albumin Level 4.9 g/dL (3.5-5.1); Alkaline Phosphatase 66 U/L (38-126); Anion Gap 9 mmol/L (4-12); Aspartate Amino Transferase 35 U/L (14-36); Bilirubin,Total 0.6 mg/dL (0.2-1.3); Blood Urea Nitrogen 13 mg/dL (7-17); Carbon Dioxide 26 mmol/L (22-30); Chloride 103 mmol/L (98-107); Estimated Glomerular Filt Rate > 60; Glucose 87 mg/dL (65-110); Potassium 3.8 mmol/L (3.4-5.0); Sodium 138 mmol/L (137-145)
== END 2023-05-13 16:02 | disposition home or self-care (01) ==
PROVIDERS: PCP Family Medicine
DX: R74.8 Abnormal levels of other serum enzymes (principal)
CPT/HCPCS: 36415; 80053; 84439; 84443

== ENCOUNTER 2023-08-10 13:30 | Outpatient (CLI) | payer OTHER, SELFPAY ==
[2023-08-10 14:37] LABS: Free T4 Free Thyroxine 1.24 ng/mL (0.78-2.19)
== END 2023-08-10 13:31 | disposition home or self-care (01) ==
LOC: ANHLAB 13:31
PROVIDERS: PCP Family Medicine; Visit Provider Internal Medicine Endocrinology, Diabetes & Metabolism
DX: E03.9 Hypothyroidism, unspecified (principal)
CPT/HCPCS: 36415; 84439; 84443

== ENCOUNTER 2023-09-30 16:04 | Outpatient (CLI) | payer OTHER, SELFPAY ==
[2023-09-30 16:38] LABS: Alanine Aminotransferase 23 U/L (6-35); Albumin Level 4.8 g/dL (3.5-5.1); Alkaline Phosphatase 52 U/L (38-126); Anion Gap 10 mmol/L (4-12); Aspartate Amino Transferase 29 U/L (14-36); Bilirubin,Total 0.8 mg/dL (0.2-1.3); Blood Urea Nitrogen 10 mg/dL (7-17); Calcium 9.1 mg/dL (8.4-10.2); Carbon Dioxide 28 mmol/L (22-30); Chloride 100 mmol/L (98-107); Estimated Glomerular Filt Rate > 60; Glucose 84 mg/dL (65-110); Potassium 3.8 mmol/L (3.4-5.0); Sodium 138 mmol/L (137-145)
== END 2023-09-30 16:05 | disposition home or self-care (01) ==
PROVIDERS: PCP Family Medicine
DX: R74.8 Abnormal levels of other serum enzymes (principal)
CPT/HCPCS: 36415; 80053

== ENCOUNTER 2023-12-01 08:13 | Outpatient (CLI) | payer OTHER, SELFPAY ==
[2023-12-01 09:31] LABS: Thyroid Stimulating Hormone 0.862 uIU/mL (0.465-4.680)
[2023-12-01 10:30] LABS: Free T4 Free Thyroxine 1.42 ng/mL (0.78-2.19)
== END 2023-12-01 08:14 | disposition home or self-care (01) ==
LOC: ANHLAB 08:15
PROVIDERS: PCP Family Medicine; Visit Provider Internal Medicine Endocrinology, Diabetes & Metabolism
DX: E03.9 Hypothyroidism, unspecified (principal)
CPT/HCPCS: 36415; 84439; 84443

== ENCOUNTER 2024-08-08 07:20 | Outpatient (CLI) | payer OTHER, SELFPAY ==
--- OUTSIDE RECORDS SUMMARY | 2024-08-08 07:25 | XMS_ITS | Referral Summary ---
Author Organization [facility] Address [address] [place] [address] Care Team Providers Care Separations Scientist Name Role Phone Rosemarie Belle MD Primary Care Provider [phone] Allergies Active Allergy Reactions Criticality Noted Date Comments Penicillins Hives Medium 02/15/2023 Medications budesonide EC (ENTOCORT EC) 3 mg 24 hr capsule Take 1 capsule (3 mg total) by mouth daily Active ferrous sulfate (iron) 325 mg (65 mg of elemental iron) tablet 1 tablet (325 mg total) daily with breakfast Active Synthroid 137 mcg tablet 1 tablet (137 mcg total) legal research analyst before breakfast 8 pills per week Active loratadine (Claritin) 10 mg tablet 1 tablet (10 mg total) daily Active magnesium oxide 200 mg magnesium tablet Take 400 mg by mouth daily Active Active Problems Problem Noted Date Diagnosed Date 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 Iron deficiency anemia due to chronic blood loss 02/15/2023 Lymphocytic colitis 02/15/2023 Social History Tobacco Use Types Packs/Day Years Used Date Smoking Tobacco: Never Smokeless Tobacco: Never Tobacco Cessation:Counseling Given: Not Answered Personal Safety Answer Date Recorded Getting School Help Needed Not on file 02/10 Comments Unknown Sex and Gender Information Value Date Recorded Sex Assigned at Not on file Legal Sex Female 12:44 PM CDT Gender Identity Not on file Sexual Orientation Not on file Last Filed Vital Signs Vital Sign Reading Time Taken Comments Blood Pressure 112/74 08/30/2023 11:43 AM CDT Pulse 56 08/30/2023 11:43 AM CDT Temperature 36.5 C (97.7 F) 08/30/2023 11:43 AM CDT Respiratory Rate - - Oxygen Saturation 100% 08/30/2023 11:43 AM CDT Inhaled Oxygen Concentration - - Weight 78.9 kg (174 lb) 08/30/2023 11:43 AM CDT Height 172.7 cm (5' 8) 08/30/2023 11:43 AM CDT Body Mass Index 26.46 08/30/2023 11:43 AM CDT Plan of Treatment Not on file Insurance Care Teams Separations Scientist Relationship Specialty Start Date End Date Rosemarie Belle MD PCP - General Family Medicine 11/05/22
--- OUTSIDE RECORDS SUMMARY | 2024-08-08 07:25 | XMS_ITS | Clinical Summary ---
Author Organization [facility] Address [address] [place] [address] Care Team Providers Care Development Planner Name Role Phone Rosemarie Belle MD Primary Care Provider [phone] Allergies Active Allergy Reactions Criticality Noted Date Comments Penicillins Hives Medium 02/15/2023 Medications budesonide EC (ENTOCORT EC) 3 mg 24 hr capsule Take 1 capsule (3 mg total) by mouth daily Active ferrous sulfate (iron) 325 mg (65 mg of elemental iron) tablet 1 tablet (325 mg total) daily with breakfast Active Synthroid 137 mcg tablet 1 tablet (137 mcg total) nurse school before breakfast 8 pills per week Active [...] on file Sexual Orientation Not on file Obstetrics History Last Filed Vital Signs Vital Sign Reading [...] 08/30/2023 11:43 AM CDT Plan of Treatment Health Maintenance Due Date Last Done Comments Cervical Cancer Screening 1992 Depression Screening 1992 Hepatitis C Screening 1992 Varicella Vaccines (1 of 2 - 13+ 2-dose series) 2005 Hepatitis B Screening 2010 Regular Well Visit/Exam 18-64 2010 Covid-19 Vaccine (4 - 2023-2 5 season) 2023 04/04/2021, 04/09/2020, 03/12/2020 Influenza Vaccine (Season Ended) 2024 DTaP/Tdap/Td Vaccine (3 - Td or Tdap) 05/05/2031 05/04/2021, 05/19/2019 HPV Vaccines Aged Out No longer eligi ble based on patient's age to complete this topic Pneumococcal vaccine <65 Aged Out No longer eligible based on patient's age to complete this topic Insurance [id number] [address] [id number] Care Teams Development Planner Relationship Specialty Start Date End Date Rosemarie Belle MD PCP - General Family Medicine 11/05/22
--- OUTSIDE RECORDS SUMMARY | 2024-08-08 07:25 | XMS_ITS | Clinical Summary ---
Author Organization [employer] [facility] Address [address] [facility] [address] [place] [address] Phone Care Team Providers Care Splicing Supervisor Name Role Phone Rosemarie Belle MD Primary Care Provider [phone] Social History Tobacco Use Types Packs/Day Years Used Date Smoking Tobacco: Never Assessed Comments Unknown Sex and Gender Information Value Date Recorded Sex Assigned at Not on file Legal Sex Female 2:22 PM FISCAL ECONOMIST Gender Identity Not on file Sexual Orientation Not on file Plan of Treatment Health Maintenance Due Date Last Done Comments DTAP/TDAP/TD VACCINES (1 - Tdap) 05/24/2011 HEPATITIS B VACCINES (1 of 3 - 19+ 3-dose series) 05/24/2011 HPV/Cotest (21-29) 2013 CERVICAL CANCER SCREENING 2022 HPV/Cotest (30-65) 2022 PAP SMEAR 2022 INFLUENZA VACCINE (#1) 2023 HPV VACCINES Aged Out No longer eligi ble based on patient's age to complete this topic [place] [address] [id number] OPTIONS PPO [id number] Care Teams Splicing Supervisor Relationship Specialty Start Date End Date Rosemarie Belle MD [address] [place] [address] PCP - General Family Practice 02/20/19
[2024-08-08 08:05] LABS: Hematocrit 41.9 % (37.0-47.0); Hemoglobin 14.2 g/dL (12.0-15.0); Mean Corpuscular HGB Conc 33.9 g/dl (32-36); Mean Corpuscular Hemoglobin 28.7 pg (26-34); Mean Corpuscular Volume 84.6 fl (80-100); Platelet Count Result 262 k/mm3 (150-375); Red Blood Count 4.95 M/mm3 (4.2-5.4); White Blood Count 5.6 K/mm3 (4.5-10.0)
[2024-08-08 08:17] LABS: Alanine Aminotransferase 28 U/L (6-35); Albumin Level 4.6 g/dL (3.5-5.1); Alkaline Phosphatase 55 U/L (38-126); Anion Gap 9 mmol/L (4-12); Aspartate Amino Transferase 33 U/L (14-36); Bilirubin,Total 0.8 mg/dL (0.2-1.3); Blood Urea Nitrogen 13 mg/dL (7-17); Calcium 9.5 mg/dL (8.4-10.2); Carbon Dioxide 26 mmol/L (22-30); Chloride 104 mmol/L (98-107); Cholesterol 171 mg/dL (0-200); Estimated Glomerular Filt Rate > 60; Glucose 90 mg/dL (65-110); HDL Direct 53 mg/dL; Potassium 3.9 mmol/L (3.4-5.0); Sodium 139 mmol/L (137-145); Total Protein 8.0 g/dL (6.3-8.2); Triglycerides 146 mg/dL (<150)
[2024-08-08 08:26] LABS: Iron 63 ug/dL (37-170)
[2024-08-08 08:27] LABS: Hemoglobin A1C. 4.6 % (<5.7)
[2024-08-08 08:41] LABS: Percent Iron Saturation 24 % (20-50)
[2024-08-08 08:45] LABS: Free T4 Free Thyroxine. 1.22 ng/dL (0.78-2.19)
[2024-08-08 08:59] LABS: Thyroid Stimulating Hormone Reflex 1.880 uIU/mL (0.465-4.68)
[2024-08-08 09:02] LABS: Ferritin 148.00 ng/mL (6.24-137)
[2024-08-10 13:33] LABS: Anti Nuclear Antibody Pattern Nuclear, Homogeneous; Anti Nuclear Antibody Titer 1:320 titer
== END 2024-08-08 07:21 | disposition home or self-care (01) ==
PROVIDERS: PCP Nurse Practitioner Family; Visit Provider Nurse Practitioner Family
DX: Z13.0 Encounter for screening for diseases of the blood and blood-forming organs and certain disorders involving the immune mechanism (principal); Z13.220 Encounter for screening for lipoid disorders; Z13.1 Encounter for screening for diabetes mellitus; Z13.21 Encounter for screening for nutritional disorder; D50.9 Iron deficiency anemia, unspecified; E03.9 Hypothyroidism, unspecified; R76.0 Raised antibody titer
CPT/HCPCS: 36415; 80053; 80061; 82306; 82728; 83036; 83540; 83550; 84439; 84443; 85027; 86038; 86039

== ENCOUNTER 2024-09-30 09:38 | Outpatient (CLI) | payer OTHER, SELFPAY ==
--- OUTSIDE RECORDS SUMMARY | 2023-01-29 03:30 | XMS_ITS | Continuity of Care Document ---
Author Organization [facility] Address [address] [place] [address] Phone Care Team Providers Care Intermediate Frame Tender Name Role Phone Ankit Coppola PT Unavailable Unavailable Procedures Procedure Date Therapeutic Activities Neuromuscular Re-Ed Therapeutic Exercise Manual Therapy Therapeutic Activities Neuromuscular Re-Ed Therapeutic Exercise Manual Therapy PT Evaluation Moderate Complexity Therapeutic Activities Neuromuscular Re-Ed Therapeutic Exercise Therapeutic Activities Neuromuscular Re-Ed Therapeutic Exercise Manual Therapy Therapeutic Activities Neuromuscular Re-Ed Therapeutic Exercise Manual Therapy Therapeutic Activities Neuromuscular Re-Ed Therapeutic Exercise Manual Therapy PT Evaluation Moderate Complexity Neuromuscular Re-Ed Therapeutic Exercise Manual Therapy Advance Directives Directive Yes / No Effective Date File Name No Information Encounters Encounter Description Practice Location Reason(s) For Visit Diagnoses Date Provider Providers Copied on Encounter [facility], [address], [place], [place], [id number], [place] tel:[phone] [facility] No Information Abdon Pham. . Referring Provider: Access Direct. [facility] [address] [place] [address], [id number], tel:[phone] [place] No Information Abdon Longoria . Referring Provider: [facility]. [address], [id number], tel:[phone] [place] No Information Abdon Longoria . Referring Provider: [facility] Direct. [address], [id number], tel:[phone] [place] No Information Abdon Longoria . Referring Provider: Access Direct. [facility] [address] [place] [address], [id number], tel:[phone] [place] No Information Abdon Longoria . Referring Provider: [address], [place], [address]. tel:[phone], [id number], tel:[phone] [facility] No Information Abdon Longoria . Referring Provider: [address], [place], [address]. tel:[phone], [id number], tel:[phone] [place] No Information Abdon Longoria . Referring Provider: [address], [place], [address]. tel:[phone] Family History Family Member Type Diagnosis Age At Onset No Information Payers Payer name Insurance type Covered libertarian ID Authoriza tion(s) Self Pay - GFE 09 Social History Type Description Quantity Date Captured Comments Sex Female Smoking Status No Information Chief Complaint And Reason For Visit No Information Reason For Referral Reason For Referral No Information History Of Present Illness Encounter Date Complaint History Of Prese nt Illness No Information Functional Status Date Functional Assessmen t No Information Instructions Date Instruction Additional Infor mation No Information Assessments Type Assessment Date No Information Patient Care Teams Name Effective Dates (start - stop) Status Members No Information
--- NOTE | ~2024-09-30 | XR_ITS ---
XR ankle LT 2V, XR foot LT 2V 09/30/2024 10:41 Indication: Rheumatoid arthritis Procedure: 2 views each left foot and ankle Comparison: No prior studies for comparison. Findings: No fracture, subluxation or dislocation. No erosive changes. No significant degenerative change. No soft tissue abnormality. No foreign bodies. Impression: 1: No significant bone or joint abnormality. Reviewed, dictated and finalized at location O. Impression: 1: No significant bone or joint abnormality. Impression: 1: No significant bone or joint abnormality.
--- NOTE | ~2024-09-30 | XR_ITS ---
XR wrist RT 2V, XR hand RT 2V 09/30/2024 10:40 (accession [id number]), 09/30/2024 10:41 (accession [id number]) Indication: Rheumatoid arthritis Procedure: 2 views right hand and 2 views right wrist Comparison: No prior studies for comparison. Findings: No fracture, subluxation or dislocation. No erosive changes. No significant degenerative change. No soft tissue abnormality. No foreign bodies. Impression: 1: No significant bone or joint abnormality. Reviewed, dictated and finalized at location O. Impression: 1: No significant bone or joint abnormality. Impression: 1: No significant bone or joint abnormality.
--- NOTE | ~2024-09-30 | XR_ITS ---
XR ankle RT 2V, XR foot RT 2V 09/30/2024 10:41 Indication: Rheumatoid arthritis Procedure: 2 views each right ankle and foot Comparison: No prior studies for comparison. Findings: No fracture, subluxation or dislocation. No erosive changes. No significant degenerative change. No soft tissue abnormality. No foreign bodies. Impression: 1: No significant bone or joint abnormality. Reviewed, dictated and finalized at location O. Impression: 1: No significant bone or joint abnormality. Impression: 1: No significant bone or joint abnormality.
--- NOTE | ~2024-09-30 | XR_ITS ---
XR wrist LT 2V, XR hand LT 2V 09/30/2024 10:41 Indication: Rheumatoid arthritis Procedure: 2 views each of the left wrist and hand Comparison: No prior studies for comparison. Comparison: No prior studies for comparison. Findings: No fracture, subluxation or dislocation. No erosive changes. No significant degenerative change. No soft tissue abnormality. No foreign bodies. Impression: 1: No significant bone or joint abnormality. Reviewed, dictated and finalized at location O. Impression: 1: No significant bone or joint abnormality. Impression: 1: No significant bone or joint abnormality.
--- NOTE | ~2024-09-30 | XR_ITS ---
XR sacroiliac joints min 3V 09/30/2024 10:41 Indication: Rheumatoid arthritis Procedure: 3 views of the sacroiliac joints Comparison: 03/31/2022 Findings: There is mild symmetric degenerative changes of the sacroiliac joints. No erosive changes or ankylosis. Sacral foramen are symmetric. Impression: 1: Mild symmetric degenerative changes of the sacroiliac joints. No evidence for erosions. Reviewed, dictated and finalized at location O. Impression: 1: Mild symmetric degenerative changes of the sacroiliac joints. No evidence fo r erosions.
--- OUTSIDE RECORDS SUMMARY | 2024-09-30 09:44 | XMS_ITS | Clinical Summary ---
Author Organization [facility] Address [address] [place] [address] Care Team Providers Care Instruments Sales Representative Name Role Phone Rosemarie Belle MD Primary Care Provider [phone] Allergies Active Allergy Reactions Criticality Noted Date Comments Penicillins Hives Medium 02/15/2023 Medications budesonide EC (ENTOCORT EC) 3 mg 24 hr capsule Take 1 capsule (3 mg total) by mouth daily Active ferrous sulfate (iron) 325 mg (65 mg of elemental iron) tablet 1 tablet (325 mg total) daily with breakfast Active Synthroid 137 mcg tablet 1 tablet (137 mcg total) registry np before breakfast 8 pills per week Active [...] Screening 2010 Regular Well Visit/Exam 18-64 2010 HPV Vaccines (1 - 3-dose SCD M series) 05/24/2019 Covid-19 Vaccine (4 - 2023-2 5 season) 2023 04/04/2021, 04/09/2020, 03/12/2020 Influenza Vaccine (#1) 2024 DTaP/Tdap/Td Vaccine (3 - Td or Tdap) 05/05/2031 05/04/2021, 05/19/2019 Pneumococcal vaccine <65 Aged Out No longer eligible based on patient's age to complete this topic Insurance [id number] [address] [id number] Care Teams Instruments Sales Representative Relationship Specialty Start Date End Date Rosemarie Belle MD PCP - General Family Medicine 11/05/22
--- OUTSIDE RECORDS SUMMARY | 2024-09-30 09:44 | XMS_ITS | Clinical Summary ---
Author Organization [employer] [facility] Address [address] [facility] [address] [place] [address] Phone Care Team Providers Care Homeopathic Doctor Name Role Phone Rosemarie Belle MD Primary Care Provider [phone] Social History Tobacco Use Types Packs/Day Years Used Date Smoking Tobacco: Never Assessed Comments Unknown Sex and Gender Information Value Date Recorded Sex Assigned at Not on file Legal Sex Female 2:22 PM SPRAYER OPERATOR Gender Identity Not on file Sexual Orientation Not on file Plan of Treatment Health Maintenance Due Date Last Done Comments HPV VACCINES (1 - 3-dose series) 05/24/2007 DTAP/TDAP/TD VACCINES (1 - Tdap) 05/24/2011 HEPATITIS B VACCINES (1 of 3 - 19+ 3-dose series) 05/09 HPV/Cotest (21-29) 2013 CERVICAL CANCER SCREENING 2022 HPV/Cotest (30-65) 2022 PAP SMEAR 2022 INFLUENZA VACCINE (#1) 2024 Insurance [facility] OPTIONS PPO [id number] Care Teams Homeopathic Doctor Relationship Specialty Start Date End Date Rosemarie Belle MD [address] [place] [id number] PCP - General Family Practice 02/20/19
[2024-09-30 10:27] LABS: Hematocrit 39.8 % (37.0-47.0); Hemoglobin 13.7 g/dL (12.0-15.0); Immature Granulocyte Percent A 0.4 % (0-0.5); Lymphocytes Absolute Auto 1.79 K/mm3 (0.9-3.2); Mean Corpuscular HGB Conc 34.4 g/dl (32-36); Mean Corpuscular Hemoglobin 29.0 pg (26-34); Mean Corpuscular Volume 84.3 fl (80-100); Nucleated Red Blood Cells Absolute Auto 0.000 K/mm3 (0.0-0.012); Nucleated Red Blood Cells Perc 0.0 % (0.0-0.2); Platelet Count Result 235 k/mm3 (150-375); Red Blood Count 4.72 M/mm3 (4.2-5.4); White Blood Count 5.3 K/mm3 (4.5-10.0)
[2024-09-30 10:30] LABS: Add Urine Microscopic? YES; Appearance Urine Cloudy (Clear); Glucose Urine UA Negative (Negative); Leukocyte Esterase Ur 2+ LEU/UL (Negative); Nitrate Urine Negative (Negative); Non Pathogenic Casts 0-2; Specific Grav Ur 1.014 (1.001-1.035)
[2024-09-30 10:47] LABS: Alanine Aminotransferase 29 U/L (6-35); Albumin Level 4.3 g/dL (3.5-5.1); Alkaline Phosphatase 63 U/L (38-126); Anion Gap 9 mmol/L (4-12); Aspartate Amino Transferase 32 U/L (14-36); Bilirubin,Total 0.5 mg/dL (0.2-1.3); Blood Urea Nitrogen 10 mg/dL (7-17); CRP < 0.5 mg/dL (<1.0); Calcium 9.1 mg/dL (8.4-10.2); Carbon Dioxide 25 mmol/L (22-30); Chloride 106 mmol/L (98-107); Creatine Kinase 45 U/L (30-135); Estimated Glomerular Filt Rate > 60; Glucose 92 mg/dL (65-110); Potassium 4.0 mmol/L (3.4-5.0); Sodium 140 mmol/L (137-145); Total Protein 7.3 g/dL (6.3-8.2)
[2024-09-30 11:23] LABS: Syphilis IgG/IgM Antibody Non-Reactive (Nonreactive)
[2024-09-30 11:26] LABS: Hepatitis B Surface Antigen Negative (Negative)
[2024-10-02 11:08] LABS: Anti-CCP Ab, IgG/IgA 6 units (0-19)
[2024-10-02 13:08] LABS: ACE 33 U/L (14-82)
[2024-10-03 16:07] LABS: ANA by IFA Rfx Titer/Pattern Positive (.)
== END 2024-09-30 09:39 | disposition home or self-care (01) ==
LOC: ANHLAB 09:42
PROVIDERS: PCP Nurse Practitioner Family; Visit Provider Nurse Practitioner Family
DX: M47.898 Other spondylosis, sacral and sacrococcygeal region (principal); M06.9 Rheumatoid arthritis, unspecified; R53.81 Other malaise; M25.50 Pain in unspecified joint; M79.10 Myalgia, unspecified site
CPT/HCPCS: 36415; 72202; 73100; 73120; 73600; 73620; 80053; 81001; 82085; 82164; 82550; 85025; 85652; 86038; 86140; 86160; 86200; 86225; 86235; 86430; 86593; 86803; 87086; 87340

== ENCOUNTER 2024-12-04 15:18 | Outpatient (CLI) | payer OTHER, SELFPAY ==
[2024-12-04 16:06] LABS: Hematocrit 38.6 % (37.0-47.0); Hemoglobin 13.2 g/dL (12.0-15.0); Immature Granulocyte Percent A 0.5 % (0-0.5); Lymphocytes Absolute Auto 1.57 K/mm3 (0.9-3.2); Mean Corpuscular HGB Conc 34.2 g/dl (32-36); Mean Corpuscular Hemoglobin 28.5 pg (26-34); Mean Corpuscular Volume 83.4 fl (80-100); Nucleated Red Blood Cells Absolute Auto 0.000 K/mm3 (0.0-0.012); Nucleated Red Blood Cells Perc 0.0 % (0.0-0.2); Platelet Count Result 232 k/mm3 (150-375); Red Blood Count 4.63 M/mm3 (4.2-5.4); White Blood Count 6.0 K/mm3 (4.5-10.0)
[2024-12-04 16:24] LABS: Alanine Aminotransferase 28 U/L (6-35); Albumin Level 4.6 g/dL (3.5-5.1); Alkaline Phosphatase 75 U/L (38-126); Anion Gap 8 mmol/L (4-12); Aspartate Amino Transferase 29 U/L (14-36); Bilirubin,Total 0.7 mg/dL (0.2-1.3); Blood Urea Nitrogen 12 mg/dL (7-17); CRP < 0.5 mg/dL (<1.0); Calcium 9.0 mg/dL (8.4-10.2); Carbon Dioxide 27 mmol/L (22-30); Chloride 102 mmol/L (98-107); Estimated Glomerular Filt Rate > 60; Glucose 89 mg/dL (65-110); Potassium 4.0 mmol/L (3.4-5.0); Sodium 137 mmol/L (137-145); Total Protein 7.8 g/dL (6.3-8.2)
[2024-12-04 16:31] LABS: Free T4 Free Thyroxine 1.72 ng/dL (0.78-2.19)
[2024-12-04 16:45] LABS: Add Urine Microscopic? YES; Appearance Urine Clear (Clear); Glucose Urine UA Negative (Negative); Leukocyte Esterase Ur 1+ LEU/UL (Negative); Need Manual Microscopic Reviewed; Nitrate Urine Negative (Negative); Non Pathogenic Casts 0-2; Specific Grav Ur 1.014 (1.001-1.035)
[2024-12-04 16:51] LABS: Thyroid Stimulating Hormone 0.085 uIU/mL (0.465-4.680)
--- OUTSIDE RECORDS SUMMARY | 2024-12-04 16:52 | XMS_ITS | Clinical Summary ---
Author Organization [facility] Address [address] [place] [phone] Care Team Providers Care Tip Cementer Name Role Phone Rosemarie Belle MD Primary Care Provider Allergies Active Allergy Reactions Criticality Noted Date Comments Penicillins Hives Medium 02/15/2023 Medications budesonide EC (ENTOCORT EC) 3 mg 24 hr capsule Take 1 capsule (3 mg total) by mouth daily Active ferrous sulfate (iron) 325 mg (65 mg of elemental iron) tablet 1 tablet (325 mg total) daily with breakfast Active Synthroid 137 mcg tablet 1 tablet (137 mcg total) merchandise supervisor before breakfast 8 pills per week Active [...] M series) 05/24/2019 Covid-19 Vaccine (4 - 2024-2 6 season) 2024 04/04/2021, 04/09/2020, 03/12/2020 Influenza Vaccine (#1) 2024 DTaP/Tdap/Td Vaccine (3 - Td or Tdap) 05/05/2031 05/04/2021, 05/19/2019 Pneumococcal vaccine <65 Aged Out No longer eligible based on patient's age to complete this topic Insurance [id number] [address] [id number] Care Teams Tip Cementer Relationship Specialty Start Date End Date Rosemarie Belle MD PCP - General Family Medicine 11/05/22
--- OUTSIDE RECORDS SUMMARY | 2024-12-04 16:52 | XMS_ITS | Clinical Summary ---
Author Organization [employer] [facility] Address [address] [facility] [address] [place] [address] Phone Care Team Providers Care Oracle Ebs Developer Name Role Phone Rosemarie Belle MD Primary Care Provider [phone] Social History Tobacco Use Types Packs/Day Years Used Date Smoking Tobacco: Never Assessed Comments Unknown Sex and Gender Information Value Date Recorded Sex Assigned at Not on file Legal Sex Female 2:22 PM CREMATORY ATTENDANT Gender Identity Not on file Sexual Orientation Not on file Plan of Treatment Health Maintenance Due Date Last Done Comments DTAP/TDAP/TD VACCINES (1 - Tdap) 05/24/2011 HEPATITIS B VACCINES (1 of 3 - 19+ 3-dose series) 05/09 HPV/Cotest (21-29) 2013 HPV VACCINES (1 - 3-dose SCDM series) 05/24/2019 CERVICAL CANCER SCREENING 2022 HPV/Cotest (30-65) 2022 PAP SMEAR 2022 INFLUENZA VACCINE (#1) [address] [place] [address] OPTIONS PPO [id number] Care Teams Oracle Ebs Developer Relationship Specialty Start Date End Date Rosemarie Belle MD [address] [place] [address] PCP - General Family Practice 02/20/19
[2024-12-04 17:15] LABS: Vitamin B12 635.0 pg/mL (239-931)
== END 2024-12-04 15:19 | disposition home or self-care (01) ==
PROVIDERS: PCP Nurse Practitioner Family; Referring Provider Nurse Practitioner Family; Visit Provider Internal Medicine Endocrinology, Diabetes & Metabolism
DX: R53.81 Other malaise (principal); E03.9 Hypothyroidism, unspecified; M32.9 Systemic lupus erythematosus, unspecified; E55.9 Vitamin D deficiency, unspecified
CPT/HCPCS: 36415; 80053; 81001; 82306; 82607; 84439; 84443; 85025; 85652; 86140; 86160; 86225; 86235; 87086

== ENCOUNTER 2024-12-19 15:18 | Outpatient (CLI) | payer OTHER, SELFPAY ==
--- OUTSIDE RECORDS SUMMARY | 2024-12-19 15:23 | XMS_ITS | Clinical Summary ---
Author Organization [facility] Address [address] [place] [phone] Care Team Providers Care Leather Patcher Name Role Phone Rosemarie Belle MD Primary Care Provider [phone] Allergies Active Allergy Reactions Criticality Noted Date Comments Penicillins Hives Medium 02/15/2023 Medications budesonide EC (ENTOCORT EC) 3 mg 24 hr capsule Take 1 capsule (3 mg total) by mouth daily Active ferrous sulfate (iron) 325 mg (65 mg of elemental iron) tablet 1 tablet (325 mg total) daily with breakfast Active Synthroid 137 mcg tablet 1 tablet (137 mcg total) machinery rigger before breakfast 8 pills per week Active [...] patient's age to complete this topic Insurance [id number] [address] [id number] Care Teams Leather Patcher Relationship Specialty Start Date End Date Rosemarie Belle MD PCP - General Family Medicine 11/05/22
--- OUTSIDE RECORDS SUMMARY | 2024-12-19 15:23 | XMS_ITS | Clinical Summary ---
Author Organization [employer] [facility] 2022 Address [address] [facility] [address] [place] [address] Phone Care Team Providers Care Ranch Hand Livestock Name Role Phone Rosemarie Belle MD Primary Care Provider [phone] Social History Tobacco Use Types Packs/Day Years Used Date Smoking Tobacco: Never Assessed Comments Unknown Sex and Gender Information Value Date Recorded Sex Assigned at Not on file Legal Sex Female 2:22 PM SANITATION SUPERINTENDENT Gender Identity Not on file Sexual Orientation Not on file Plan of Treatment Health Maintenance Due Date Last Done Comments DTAP/TDAP/TD VACCINES (1 - Tdap) 05/24/2011 HEPATITIS B VACCINES (1 of 3 - 19+ 3-dose series) 05/09 HPV/Cotest (21-29) 2013 HPV VACCINES (1 - 3-dose SCDM series) 05/24/2019 CERVICAL CANCER SCREENING 2022 HPV/Cotest (30-65) 2022 PAP SMEAR 2022 INFLUENZA VACCINE (#1) [address] [place] [id number] OPTIONS PPO [id number] Care Teams Ranch Hand Livestock Relationship Specialty Start Date End Date Rosemarie Belle MD [address] [place] [address] PCP - General Family Practice 02/20/19
[2024-12-19 16:11] LABS: Free T4 Free Thyroxine 1.31 ng/dL (0.78-2.19)
[2024-12-19 16:20] LABS: Thyroid Stimulating Hormone 0.579 uIU/mL (0.465-4.680)
== END 2024-12-19 15:19 | disposition home or self-care (01) ==
LOC: ANHLAB 15:19
PROVIDERS: PCP Nurse Practitioner Family; Visit Provider Internal Medicine Endocrinology, Diabetes & Metabolism
DX: E06.3 Autoimmune thyroiditis (principal)
CPT/HCPCS: 36415; 84439; 84443